=== PATIENT | male | born 1945 | race Caucasian/White ===

== ENCOUNTER → 2023-11-19 | Outpatient (CLI) | payer MEDICARE ==
[2023-11-19 11:13] LABS: HCT 40.7 % (39.0-53.0); HGB 13.3 gm/dL (13.0-17.5); MCH 31.4 pg (25.0-35.0); MCHC 32.7 g/dL (31.0-37.0); MCV 96.1 fL (80.0-100.0); Mean Platelet Volume 9.2; Platelet Count 182 k/uL (150-450); RBC 4.24 m/uL (4.30-5.90); RDW 12.7 % (11.5-15.5); WBC 5.8 k/uL (3.8-10.6)
[2023-11-19 11:36] LABS: ALT 23 U/L (4-49); AST 24 U/L (17-59); African American GFR (CKD) 75 (>60 ml/min/1.73 sqM); Albumin 4.4 g/dL (3.5-5.0); Albumin/Globulin Ratio 1.8; Alkaline Phosphatase 63 U/L (38-126); Anion Gap 8 mmol/L; Blood Urea Nitrogen 22 mg/dL (9-20); Calcium 9.7 mg/dL (8.4-10.2); Carbon Dioxide 29 mmol/L (22-30); Chloride 102 mmol/L (98-107); Globulin 2.4 g/dL; Glucose 99 mg/dL (74-99); Non-African American GFR(CKD) 65 (>60 ml/min/1.73 sqM); Potassium 4.4 mmol/L (3.5-5.1); Sodium 139 mmol/L (137-145); Total Protein 6.8 g/dL (6.3-8.2)
[2023-11-19 11:37] LABS: INR 0.9 (<1.2); Partial Thromboplastin Time 22.1 sec (22.0-30.0); Prothrombin Time 10.4 sec (10.0-12.5)
[2023-11-19 11:44] LABS: NT-Pro-B-Type Natriuretic Pept 188 pg/mL
[2023-11-19 15:43] LABS: Chol/HDL Ratio 3.36 Ratio; LDL Cholesterol,Calculated 105.3 mg/dL (0.0-131.0)
== END | disposition home or self-care (01) ==
LOC: LABPAT 10:19
PROVIDERS: ATTEND Orthopaedic Surgery
DX: Z01.818 Encounter for other preprocedural examination (principal); Z13.6 Encounter for screening for cardiovascular disorders; D72.9 Disorder of white blood cells, unspecified; E11.9 Type 2 diabetes mellitus without complications; I50.9 Heart failure, unspecified; E78.5 Hyperlipidemia, unspecified; E03.9 Hypothyroidism, unspecified; M16.11 Unilateral primary osteoarthritis, right hip; Z22.322 Carrier or suspected carrier of Methicillin resistant Staphylococcus aureus; R00.1 Bradycardia, unspecified; R79.89 Other specified abnormal findings of blood chemistry
CPT/HCPCS: 80053; 80061; 83036; 83880; 84443; 85027; 85610; 85730; 86141; 86850; 86900; 86901; 87070; 93005

== ENCOUNTER 2023-11-30 05:35 | Inpatient (IN) | payer MEDICARE ==
[~2023-11-30 05:35] MED LIST: ROPIVACAINE/EPI/CLONIDINE/KET 50 ML SYRINGE MISCELLANE PRN
[2023-11-30] MEDS ORDERED: LIDOCAINE 1% (10MG/ML) FOR IV START INTRADERMA PRN (05:36)
[2023-11-30] MEDS ORDERED: ONDANSETRON 4 MG/2 ML VIAL IVP PRN ×3 (05:36→08:30)
[2023-11-30] MEDS ORDERED: HYDROmorphone 0.5 MG/0.5 ML SYRINGE IVP PRN ×3 (05:36→08:30)
[2023-11-30] MEDS ORDERED: DOCUSATE 100 MG CAP PO PRN (06:00)
[2023-11-30] MEDS ORDERED: oxyCODONE ER 10 MG TAB.ER.12H PO PRN (06:00)
[2023-11-30] MEDS ORDERED: DEXAMETHASONE SOD PHOSPHATE 10 MG/ML 1 ML VIAL IV PRN (06:00)
[2023-11-30] MEDS ORDERED: TRANEXAMIC 1,000 MG/100ML-NACL 1,000 MG in SALINE 1 100ML.BAG IV PRN (06:00)
[2023-11-30] MEDS ORDERED: TRANEXAMIC 1,000 MG/100ML-NACL 1,000 MG in SALINE 1 100ML.BAG IVPB PRN (06:00)
[2023-11-30] MEDS ORDERED: FAMOTIDINE 20 MG/2 ML VIAL IVP PRN (06:00)
[2023-11-30] MEDS ORDERED: KETOROLAC 15 MG/ML 1 ML VIAL IVP PRN (06:00)
[2023-11-30] MEDS: ACETAMINOPHEN TAB 500 MG TAB PO PRN (06:06)
[2023-11-30] MEDS: ONDANSETRON 4 MG/2 ML VIAL IVP ONE (06:31)
[2023-11-30] MEDS: DEXAMETHASONE SOD PHOSPHATE 4 MG/ML 1 ML VIAL IV ONE (06:31)
[2023-11-30] MEDS: LACTATED RINGERS 1,000 ML IV SCH (06:31)
[2023-11-30] MEDS: IV FLUID CONTINUATION 1,000 ML IV ONE (06:43)
[2023-11-30] MEDS: fentaNYL (PF) 50 MCG/ML 2 ML AMP IVP ONE (06:50)
[2023-11-30] MEDS: MIDAZOLAM 2 MG/2 ML VIAL IV ONE (06:50)
[2023-11-30] MEDS ORDERED: TRANEXAMIC 1,000 MG/100ML-NACL PREMIX BAG ONE (06:59)
[2023-11-30] MEDS ORDERED: PROPOFOL 10 MG/ML 20 ML VIAL IV ONE (06:59)
[2023-11-30] MEDS ORDERED: ePHEDrine 50 MG/ML 1 ML VIAL ONE (06:59)
[2023-11-30] MEDS ORDERED: ROPIVACAINE 5 MG/ML 30 ML VIAL ONE (06:59)
[2023-11-30] MEDS ORDERED: GLYCOPYRROLATE 0.2 MG/ML 2 ML VIAL ONE (06:59)
[2023-11-30] MEDS: ceFAZolin 1,000 MG in SODIUM CHLORIDE 0.9% 1,000 ML IRRIGATION ONE (07:00)
[2023-11-30] MEDS: ROPIVACAINE 5 MG/ML 30 ML VIAL MISCELLANE ONE ×2 (07:31→08:00)
--- NOTE | 2023-11-30 08:08 | P.OP ---
Date of Procedure: 11/30/23 Preoperative Diagnosis: Severe osteoarthritis left hip Postoperative Diagnosis: Severe osteoarthritis left hip Procedure(s) Performed: Left total hip arthroplasty with a direct anterior approach Implants: [employer] Polarstem standard size 3 with a collar [employer] R3, 3 hole hemispherical acetabular shell, 52 mm [employer] Reflection 6.5 mm cancellus screws, 20 mm, 25 mm [employer] R3, XLPE 20 acetabular liner [employer] Oxinium femoral head 36 mm, +0 All components were press-fit. The articulation is Oxinium on polyethylene. Anesthesia: spinal Surgeon: Richi Baxter Features Editor #1: Rosario Bright Estimated Blood Loss (ml): 200 Pathology: none sent Condition: stable Disposition: PACU Indications for Procedure: After failure of conservative treatment we discussed the surgical and non surgical treatment options at length. Patient wishes to proceed with a total hip arthroplasty with a direct anterior approach. Complications specific to this procedure were discussed at length, including but not limited to infection, leg length discrepancy, dislocation, nerve injury, and fracture. Covid-19 was also discussed at length with the patient, and they are aware of the current policies and procedures. The patient was given the option of delaying surgery, but they elect to proceed knowing these risks. Patient is aware of all these complications and informed consent was obtained Operative Findings: The operative findings are consistent with severe osteoarthritis of the left hip Description of Procedure: The patient was seen and evaluated in the preoperative area and the consent was reviewed. The operative site was marked with a skin marker. The patient verified the procedure and operative site. A GILBERTO block was placed by anesthesia in the preoperative area. The patient was then brought to the operating room and given preoperative antibiotics intravenously. 1 g of Tranexamic acid was also given intravenously. A spinal anesthetic was administered by the anesthesia department. The patient was then placed on the [place] table with the bony prominences well-padded. The hip area was then prepped with a ChloraPrep solution and draped in the usual sterile fashion. A universal timeout was then performed, which confirmed the patient's name, surgical site, ALLERGIES, and procedure being performed on the consent. Next the incision site was located at 1 cm distal and 4 cm lateral to the anterior superior iliac spine. The skin and subcutaneous tissues were sharply incised. Incision was carefully dissected down to the fascia overlying the tensor fascia eve muscle. This fascia was then incised in line with the muscle fibers. Care was taken to stay laterally in order to avoid injuring the lateral femoral cutaneous nerve. Next, using blunt finger dissection, the tensor fascia eve muscle was dissected off its investing fascia. The muscle was then carefully retracted laterally with a cobra retractor over the lateral neck of the femur. Next, the circumflex vessels were identified and cauterized using the Aquamantis device. The anterior hip capsule was then exposed. The capsule was then opened and an inverted T fashion. The retractors were then placed intracapsularly. The retractors were maintained intracapsular throughout the procedure. The proximal femur was then visualized. Fluoroscopic x-rays were then taken in order to evaluate the preoperative leg lengths. A small amount of traction was placed on the leg. The femoral neck was then osteotomized at the appropriate level above the lesser trochanter. A small wedge of bone was then removed from the remaining femoral head. Next, using a corkscrew the femoral head was removed from the acetabulum. On gross visual inspection, the femoral head had complete loss of articular cartilage and multiple periarticular osteophytes. The femoral head was then measured. Attention was then turned to the acetabulum. The acetabulum was exposed and any remaining labrum was excised. Sequential reaming of the acetabulum was performed using fluoroscopic guidance until there was a good bed of bleeding cancellus bone. When the appropriate size was reached, a trial was then placed. The position and fit of the trial was checked with fluoroscopy. The trial was then removed. Then, using fluoroscopic guidance, the final implant was impacted at 20 of anteversion and 40 of abduction, and fully seated in the acetabulum. 2 screws were then placed in the acetabulum. Again fluoroscopy was used to check position of the screws. Next, the liner was then impacted, with a 20 elevated liner located in the anterior superior quadrant. Component locking was confirmed. Attention was then directed to the femur. With the aid of the [place] table, the femur was externally rotated to approximately 130, extended, and adducted under the opposite leg. A side hook was then placed under the proximal femur, and the side hook elevator was used to elevate the proximal femur while releasing the capsule. Retractors were then placed. A capsular release was performed, as well as a release of the conjoined tendon, which afforded excellent visualization of the proximal femur. Next, a box osteotome was used to lateralize the proximal femur. A racing secretary and handicapper was then used to locate the femoral canal. Sequential broaching was then performed with appropriate size which afforded excellent fixation in the proximal femur. A trial was then placed with appropriate head and neck, and the hip was gently reduced with the aid of the [place] table. Fluoroscopy was then used to check position of the components, as well as to evaluate the leg lengths and offset. The leg lengths and offset were measured as closely as possible to ensure stability of the hip. The hip was then gently dislocated and the trials were then removed. Final implants were then impacted and the hip was again reduced. Final fluoroscopic x-rays confirmed that the components were in anatomic position. The leg lengths and offset were measured and were found to coincide with the trial measurements. The hip was also taken through range of motion, and found to be stable. The hip was then copiously irrigated with antibiotic solution with pulsatile lavage. The hip was then irrigated with Irrisept solution. The soft tissues were then injected with a ropivacaine solution. A second dose of 1 g of Tranexamic acid was also given intravenously. The fascia was then closed with 2-0 strata fix suture. The subcutaneous tissue was closed with 3-0 Vicryl. The subcuticular tissue was closed with 3-0 strata fix suture. The skin was then closed with Exofin skin glue. After the glue and dried, and Optifoam silver impregnated dressing was applied. The patient was then transferred to the recovery room in stable condition. The clinical trial assistant KOKO Jean was required due to the complexity of surgery, and the need for skilled hand frame surgical elastic knitter for positioning, draping, exposure, retraction, and closure of the wound.
[2023-11-30] MEDS ORDERED: NALOXONE 0.4 MG/ML 1 ML VIAL IV PRN (08:30)
--- NOTE | 2023-11-30 09:40 | XR ---
EXAMINATION TYPE: XR one view left hip DATE OF EXAM: 11/30/2023 8:54 AM CLINICAL INDICATION: Male, 78 years old with history of Status post hip surgery, assess surgical roxana hein; [facility] COMPARISON: None. TECHNIQUE: XR Hip Limited LT; hip was examined in the frontal projections FINDINGS: Post arthroplasty changes, hardware is intact, alignment is appropriate. No evidence of fra cture. No evidence of any acute osseous pathology or joint dislocation. IMPRESSION: Hip arthroplasty with hardware intact and in appropriate alignment. No acute fracture. [facility], , 11/30/2023 9:38 AM
[2023-11-30] MEDS: SODIUM CHLORIDE 0.9% 1,000 ML IV ONE (15:44)
[2023-11-30] MEDS: SODIUM CHLORIDE 0.9% 1,000 ML IV SCH (16:58)
--- NOTE | 2023-11-30 17:03 | P.ANPRN ---
Procedure Note - Anesthesia - Nerve Block Performed Left Hal Single Time Out Performed: Yes ([id number]) Date of Procedure: 11/30/23 Procedure Start Time: 06:50 Procedure Stop Time: 06:54 Location of Patient: PreOp Indication: Acute Post-Operative Pain, Requested by Surgeon Specifically requested for management of pain by DrAmmon: Richi Baxter Sedation Type: Sedate with meaningful contact maintained Preparation: Sterile Prep Position: Supine Catheter: None Needle Types: Pajunk Needle Gauge: 21 Ultrasound used to visualize needle placement: Yes Ultrasound used to observe medication spread: Yes Injectate: 0.5% Ropivacaine (see comment for volume) (30cc) Blood Aspirated: No Pain Paresthesia on Injection Noted: No Resistance on Injection: Normal Image Stored and Saved: Yes Events: Uneventful and Well Tolerated
[2023-11-30] MEDS: HYDROmorphone 0.5 MG/0.5 ML SYRINGE IVP PRN (18:39)
--- NOTE | 2023-11-30 21:50 | P.CONS ---
History of Present Illness - Reason for Consult Consult date: 11/30/23 Medical management Requesting physician: Richi Baxter - Chief Complaint Left total hip arthroplasty - History of Present Illness HISTORY OF PRESENT ILLNESS: 78-year-old with active medical history of advanced dementia, hypertension, hyperlipidemia, atherosclerotic heart disease post angioplasty and stent placement from few years ago, history of chronic arthritis, chronic lower back pain, severe abnormal balance and gait who also had BPH and severe GERD was scheduled for elective left total hip arthroplasty on November 30, 2023 was seen and evaluated in the office also was seen and evaluated by cardiology Dr. Fair and was cleared for surgery by all. 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 and was the last part of his life living in [place] when noted by friend that he is having further decline in memory and cognitive contact with family and hide patient transfer to [place] where he was originally from. Patient again started seen his new send as you and his sister with her family and apparently had an arrangement to see cardiology, neurology with Dr. Xavier to work patient had Mini-Mental status along with MRI last 2 weeks result were not released so far and was told that he had most likely Alzheimer disease furthermore might require medication and management there is an appointment with Dr. Xavier to sometime in the next few weeks. Family described he has no help at home patient never been does not have any children and 1 time to go home after his hip surgery he does not have much help he is going require to go to subacute rehab specially with his cognitive and decline in memory. Patient is doing well hemodynamically medication reconciliation was done he is not having any chest pain or angina he is not hypoxic blood pressure is well- controlled. REVIEW OF SYSTEMS: CONSTITUTIONAL: Well-developed no acute respiratory distress. EYES: No icterus sclerae, no conjunctivitis. EARS, NOSE, MOUTH, THROAT, and FACE: No sore throat, lymphadenopathy, carotid bruits or deformity. RESPIRATORY: No SOB cough or wheezes. CARDIOVASCULAR: No CP, Palpitation, PND, Orthopnea, or angina. GASTROINTESTINAL: No Abd pain, Nausea or vomiting, no Diarrhea or constipation, No GI Bleed, no distention or masses. GENITOURINARY: Negative for Hematuria or UTI, no kidney stones. INTEGUMENT/BREAST: Negative for any muscular injury with mild osteoarthritis.. HEMATOLOGIC/LYMPHATIC: Negative for bleed or purpura. MUSCULOSKELTAL: Slight discomfort in the left hip area incision looks fine. NEURLOGICAL: Significant decline in memory and dementia but able to move all his extremities. BEHAVIORAL/PSYCH: Negative. ENDOCRINE: Negative. PHYSICAL EXAMINATION: General Appearance: Alert, cooperative, no distress, appears stated age. Slight confusion. Neck HEENT: Supple, no lymphadenopathy, no thyroid enlargement, no carotid bruits. Lungs: Clear to auscultation without crackles or wheezes no rhonchi, no deformity. Chest Wall: Chest wall normal expansion with deep inspiration no tenderness and no deformity was found on exam, no costochondral pain or discomfort. Heart: Regular rate and rhythm, S1, S2 normal, no murmur, rub or gallop. Back: Symmetric, no curvature, ROM normal, no CVA tenderness. Abdomen: Soft, non-tender, bowel sounds active all four quadrants, no masses, no organomegaly. Extremities: Left hip incision is an anterior site of area with no induration or redness. Pulses: 2+ and symmetric. Skin: Skin color, texture, tugor normal, no rashes or lesions. Neurologic: Alert oriented slight confusion cranial nerves II through XII intact, no motor deficit, no abnormal balance or gait. ASSESSMENT AND PLAN: _Post anterior left total hip arthroplasty: Stable postsurgery resume home medication, watch patient symptoms carefully Patient to be watched hemodynamically as well vitals following surgery still showing pulse rate in the 50s with normal blood pressure pulse ox is in the 90s temperature is normal. No decline hemodynamically and pain is well-controlled. _Atherosclerotic heart disease: Post angioplasty and stent placement years ago, still seen cardiology continue medical management with a combination of lisinopril, atorvastatin and aspirin. _Advanced decline in memory most likely Alzheimer disease he is not on any medication had seen neurology and probably initiate smaller dose of Aricept and prepare for titrating dose higher if needed. _Hypertension: Remain on Zestril 5 mg a day will titrate dose up to 25 to keep his blood pressure below 130 and below 88 for diastolic. _Hyperlipidemia: Remain on atorvastatin 40 mg with target for LDL below 70. _BPH: Watch for any urinary retention no obstruction so far had more polyuria and nocturia and mild incontinence. _Pain management: Continue hydrocodone on as-needed basis. _GI prophylaxis: Patient be on Pepcid 20 mg daily. _DVT prophylaxis: Patient will follow instruction with Ortho recommendation for aspirin 325 mg twice a day for total of 2 weeks. CODE STATUS: Full code. Dr. Baxter thank very much for the consult if I can be any further help to please let me know. Past Medical History Past Medical History: Hearing Disorder / Deafness, Hyperlipidemia, Hypertension, Memory Impairment Additional Past Medical History / Comment(s): being tested for cognitive decline, short term memory loss, [facility] [facility]- no hearing aids; left lower leg wound- scabbed and healed per sister, aware to notify Dr. Baxter of any changes. History of Any Multi-Drug Resistant Organisms: None Reported Past Surgical History: Heart Catheterization With Stent Past Anesthesia/Blood Transfusion Reactions: No Reported Reaction Date of Last Stent Placement:: 2021 Past Psychological History: No Psychological Hx Reported Smoking Status: Never smoker Past Alcohol Use History: Occasional Additional Past Alcohol Use History / Comment(s): occasional glass of wine- instructed none 24 hrs prior to surg. Past Drug Use History: None Reported - Past Family History Father Family Medical History: Coronary Artery Disease (CAD) Additional Family Medical History / Comment(s): CABG Mother Family Medical History: Coronary Artery Disease (CAD) Additional Family Medical History / Comment(s): CABG Medications and Allergies Home Medications Medication Instructions Recorded Confirmed Type Aspirin [Adult Low Dose Aspirin EC] 81 mg PO DAILY 11/23/23 11/30/23 History Atorvastatin [Lipitor] 40 mg PO DAILY 11/23/23 11/30/23 History lisinopriL [Zestril] 5 mg PO DAILY 11/23/23 11/30/23 History Aspirin 325 mg PO BID #60 tab 11/30/23 Rx HYDROcodone/APAP 7.5-325MG [[place] 1 - 2 tab PO Q6H PRN #32 tab 11/30/23 Rx 7.5-325] Sennosides [Senokot] 2 tab PO DAILY PRN #60 tablet 11/30/23 Rx Allergies Allergy/AdvReac Type Severity Reaction Status Date / Time Iodinated Contrast Media Allergy Swelling Verified 11/30/23 06:04 Physical Exam Vitals: Vital Signs Temp Pulse Pulse Pulse Resp BP BP 11/30/23 15:54 97.6 F 75 18 137/67 11/30/23 15:01 57 L 16 113/56 11/30/23 14:28 57 L 16 122/58 11/30/23 13:58 57 L 16 138/65 11/30/23 13:28 57 L 16 120/57 11/30/23 13:01 57 L 16 109/58 11/30/23 12:43 57 L 16 116/56 11/30/23 12:28 57 L 16 117/60 11/30/23 12:13 57 L 16 109/58 11/30/23 11:56 56 L 16 104/56 11/30/23 11:28 53 L 16 105/54 11/30/23 11:13 54 L 16 108/57 11/30/23 10:58 49 L 16 108/55 11/30/23 10:43 49 L 16 107/58 11/30/23 10:28 51 L 16 104/58 11/30/23 10:13 50 L 16 113/56 11/30/23 09:58 50 L 16 106/67 11/30/23 09:43 55 L 16 97/52 11/30/23 09:28 55 L 16 97/88 11/30/23 09:13 50 L 16 100/55 11/30/23 08:58 50 L 16 94/52 11/30/23 08:43 50 L 16 91/55 11/30/23 08:27 98 F 57 L 16 95/54 11/30/23 06:07 97.9 F 59 L 18 137/62 Pulse Ox 11/30/23 15:54 96 11/30/23 15:01 97 11/30/23 14:28 97 11/30/23 13:58 97 11/30/23 13:28 97 11/30/23 13:01 97 11/30/23 12:43 97 11/30/23 12:28 97 11/30/23 12:13 97 11/30/23 11:56 97 11/30/23 11:28 96 11/30/23 11:13 97 11/30/23 10:58 97 11/30/23 10:43 97 11/30/23 10:28 97 11/30/23 10:13 97 11/30/23 09:58 97 11/30/23 09:43 98 11/30/23 09:28 98 11/30/23 09:13 98 11/30/23 08:58 98 11/30/23 08:43 98 11/30/23 08:27 98 11/30/23 06:07 97 Intake and Output 11/30/23 11/30/23 11/30/23 06:59 14:59 22:59 Intake Total 200 551 Output Total 900 Balance 200 -349 Intake: IV 200 551 Output: Urine 700 Estimated Blood Loss 200 Other: Voiding Method Urinal # Voids 1 Weight 77.9 kg 77.9 kg
[2023-11-30] MEDS: LORazepam 2 MG/ML INJ IV PRN (22:18)
[2023-11-30] MEDS ORDERED: LORazepam 2 MG/ML INJ IV PRN ×3 (22:23)
[2023-11-30] MEDS: SENNOSIDES-DOCUSATE SODIUM 1 EACH TAB PO SCH (22:36)
[2023-11-30] MEDS: ASPIRIN 325 MG TAB PO SCH (22:36)
[2023-12-01] MEDS: lisinopriL 5 MG TAB PO SCH (08:30)
[2023-12-01] MEDS: FAMOTIDINE 20 MG TAB PO SCH (08:30)
[2023-12-01] MEDS: ATORVASTATIN 40 MG TAB PO SCH (08:30)
[2023-12-01] MEDS: HYDROcodone/APAP 7.5-325MG 1 EACH TAB PO PRN ×2 (08:31→15:52)
[2023-12-01 08:42] LABS: Basophils # (A) 0.02 X 10*3/uL (0.00-0.10); Basophils % (A) 0.2 %; Eosinophils # (A) 0 X 10*3/uL (0.04-0.35); Eosinophils % (A) 0 %; HCT 34.2 % (39.6-50.0); HGB 11.3 g/dL (13.0-17.0); Lymphocytes # (A) 1.25 X 10*3/uL (0.90-5.00); Lymphocytes % (A) 11.7 %; MCH 30.5 pg (27.0-32.0); MCV 92.4 FL (80.0-97.0); Mean Platelet Volume 12.1 FL (9.5-12.2); Monocytes # (A) 1.26 X 10*3/uL (0.20-1.00); Monocytes % (A) 11.8 %; NRBC Per 100 WBC 0 X 10*3/uL (0.00-0.01); Neutrophils # (A) 8.12 X 10*3/uL (1.80-7.70); Neutrophils % (A) 75.7 %; Platelet Count 191 X 10*3/uL (140-440); RDW 13.4 % (11.5-14.5); WBC 10.71 X 10*3/uL (4.50-10.00)
--- NOTE | 2023-12-01 13:43 | P.PN ---
Subjective Progress Note Date: 12/01/23 This is a 78-year-old male who is status post left total hip arthroplasty. This is postoperative day #1 and patient is seen and evaluated at bedside today. Patient is somewhat of a poor historian, but daughter is present at bedside today. Patient states that he has soreness in the left hip, but overall is doing well. Objective - Vital Signs Vital signs: Vital Signs Temp 97.8 F 12/01/23 08:11 Pulse 77 12/01/23 08:11 Resp 17 12/01/23 08:11 BP 124/53 12/01/23 08:11 Pulse Ox 97 12/01/23 08:11 FiO2 Intake & Output 11/30/23 12/01/23 12/01/23 18:59 06:59 18:59 Intake Total 551 Output Total 950 100 Balance -399 -100 Weight 77.9 kg Intake: IV 551 Output: Urine 750 100 Estimated Blood Loss 200 Other: Voiding Method Urinal Toilet # Voids 1 1 - Exam Vital signs are stable. Patient is in no acute distress and is alert and oriented 3. Calf is soft and nontender to palpation. Dressing is clean, dry, and intact. Patient has full foot and ankle motion without pain or difficulty. Sensation intact. Neurovascular status and circulatory status are intact. - Labs CBC & Chem 7: 12/01/23 02:32 Labs: Abnormal Lab Results - Last 24 Hours (Table) 12/01/23 Range/Units 02:32 WBC 10.71 H (4.50-10.00) X 10*3/uL RBC 3.70 L (4.40-5.60) X 10*6/uL Hgb 11.3 L (13.0-17.0) g/dL Hct 34.2 L (39.6-50.0) % Immature Gran # 0.06 H (0.00-0.04) X 10*3/uL Neutrophils # 8.12 H (1.80-7.70) X 10*3/uL Monocytes # 1.26 H (0.20-1.00) X 10*3/uL Eosinophils # 0 L (0.04-0.35) X 10*3/uL Assessment and Plan (1) S/P total hip arthroplasty Current Visit: Yes Status: Acute Code(s): Z96.649 - PRESENCE OF UNSPECIFIED ARTIFICIAL HIP JOINT SNOMED Code(s): 132630914373 (2) Osteoarthritis of left hip Current Visit: Yes Status: Acute Code(s): M16.12 - UNILATERAL PRIMARY OSTEOARTHRITIS, LEFT HIP SNOMED Code(s): 654757510837377 Plan: Continue routine postop care and pain control. Continue anticoagulation. Weightbearing as tolerated with a walker. Leave dressing in place for 7 days. Appreciate input from internal medicine. Anticipate discharge to [facility] in the next 24-48 hours.
--- NOTE | 2023-12-01 18:22 | FL ---
EXAMINATION TYPE: FL guidance operating room, XR Hip Limited LT DATE OF EXAM: 11/30/2023 8:21 AM COMPARISON: Pre Operative Images if available both CT/MRI or plain film CLINICAL INDICATION: Male, 78 years old with history of Left Hip-Ant; TECHNIQUE: FL guidance operating room, XR Hip Limited LT, multiple fluoroscopic images provided for p rocedure. Total fluoroscopy time: 19 seconds Total submitted images to PACS: 3 DAP: 1.0128 mGym2 Gycm2 uGym2 cGycm2 or equivalent. FINDINGS: Fluoroscopic images during internal fixation/arthroplasty demonstrate fixation hardware in appropriat e position. Hardware appears intact. No immediate complication identified. IMPRESSION: 1. No evidence for intraoperative complication. 2. Please see the operative/procedural note for further details. [facility], , 12/01/2023 6:19 PM
--- NOTE | 2023-12-02 05:53 | P.PN ---
Subjective Progress Note Date: 12/01/23 HISTORY OF PRESENT ILLNESS: 78-year-old with active medical history of advanced dementia, hypertension, hyperlipidemia, atherosclerotic heart disease post angioplasty and stent pl acement from few years ago, history of chronic arthritis, chronic lower back pain, severe abnormal balance and gait who also had BPH and severe GERD was scheduled for elective left total hip arthroplasty on November 30, 2023 was seen and evaluated in the office also was seen and evaluated by cardiology Dr. Fair and was cleared for surgery by all. 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 Patient again started seen his new send as you and his sister with her family and apparently had an arrangement to see cardiology, neurology with Dr. Xavier to work patient had Mini-Mental status along with MRI last 2 weeks result were not released so far and was told that he had most likely Alzheimer disease furthermore might require medication and management there is an appointment with Dr. Xavier to sometime in the next few weeks. Family described he has no help at home patient never been does not have any children and 1 time to go home after his hip surgery he does not have much help he is going require to go to subacute rehab specially with his cognitive an d decline in memory. Patient is doing well hemodynamically medication reconciliation was done he is not having any chest pain or angina he is not hypoxic blood pressure is well- controlled. 12/01/2023: Patient doing good overnight, he was quite confused initially was able to get out of bed today sitting in a chair eating his breakfast, blood pressure remained well-controlled, pain level still good at this point. His hemoglobin dropped down to 11.3 and he seems to be able to tolerate his pain very well. Will initiate physical therapy the patient again does not have a support system or the physical help at home will require probably some help going to one of the [facility] to recover from his hip surgery. Despite his memory loss patient is not combative does not have any behavioral issue earlier in the night had quite confusion and the pulling his IV we did smaller dose of lorazepam which calmed him down did not require any further medication or sedation. REVIEW OF SYSTEMS: CONSTITUTIONAL: Well-developed no acute respiratory distress. EYES: No icterus sclerae, no conjunctivitis. EARS, NOSE, MOUTH, THROAT, and FACE: No sore throat, lymphadenopathy, carotid bruits or deformity. RESPIRATORY: No SOB cough or wheezes. CARDIOVASCULAR: No CP, Palpitation, PND, Orthopnea, or angina. GASTROINTESTINAL: No Abd pain, Nausea or vomiting, no Diarrhea or constipation, No GI Bleed, no distention or masses. GENITOURINARY: Negative for Hematuria or UTI, no kidney stones. INTEGUMENT/BREAST: Negative for any muscular injury with mild osteoarthritis.. HEMATOLOGIC/LYMPHATIC: Negative for bleed or purpura. MUSCULOSKELTAL: Slight discomfort in the left hip area incision looks fine. NEURLOGICAL: Significant decline in memory and dementia but able to move all his extremities. BEHAVIORAL/PSYCH: Negative. ENDOCRINE: Negative. PHYSICAL EXAMINATION: General Appearance: Alert, cooperative, no distress, appears stated age. Slight confusion. Neck HEENT: Supple, no lymphadenopathy, no thyroid enlargement, no carotid bruits. Lungs: Clear to auscultation without crackles or wheezes no rhonchi, no deformity. Chest Wall: Chest wall normal expansion with deep inspiration no tenderness and no deformity was found on exam, no costochondral pain or discomfort. Heart: Regular rate and rhythm, S1, S2 normal, no murmur, rub or gallop. Back: Symmetric, no curvature, ROM normal, no CVA tenderness. Abdomen: Soft, non-tender, bowel sounds active all four quadrants, no masses, no organomegaly. Extremities: Left hip incision is an anterior site of area with no induration or redness. Pulses: 2+ and symmetric. Skin: Skin color, texture, tugor normal, no rashes or lesions. Neurologic: Alert oriented slight confusion cranial nerves II through XII intact, no motor deficit, no abnormal balance or gait. ASSESSMENT AND PLAN: _Post anterior left total hip arthroplasty: Stable postsurgery resume home medication, watch patient symptoms carefully Patient to be watched hemodynamically patient lives alone and will require some help before able to be discharged most likely is getting go to [facility] short-term. _Atherosclerotic heart disease: Post angioplasty and stent placement years ago, still seen cardiology continue medical management with a combination of l isinopril, atorvastatin and aspirin. _Advanced decline in memory most likely Alzheimer disease he is not on any medication had seen neurology and probably initiate smaller dose of Aricept 5 mg a day initiated dose at this point and when seen neurology afterward can change medication if needed. _Hypertension: Remain on Zestril 5 mg a day which seem to control the blood pressure and keeping the systolic blood pressure below 140 at this point. _Hyperlipidemia: Remain on atorvastatin 40 mg with target for LDL below 70. _BPH: Watch for any urinary retention no obstruction so far had more polyuria and nocturia and mild incontinence. _Pain management: Continue hydrocodone on as-needed basis. Discharge planning: Patient will be started and titrate physical therapy will talk to the social service about helping patient to probably get to SNF for 1 to 2 weeks. Objective - Vital Signs Vital signs: Vital Signs Temp 98.3 F 12/01/23 01:17 Pulse 83 12/01/23 01:17 Resp 12 12/01/23 03:45 BP 133/63 12/01/23 01:17 Pulse Ox 94 L 12/01/23 01:17 FiO2 Intake & Output 11/30/23 11/30/23 12/01/23 06:59 18:59 06:59 Intake Total 200 551 Output Total 950 100 Balance 200 -399 -100 Weight 77.9 kg 77.9 kg Intake: IV 200 551 Output: Urine 750 100 Estimated Blood Loss 200 Other: Voiding Method Urinal Toilet # Voids 1 1 - Labs CBC & Chem 7: 12/01/23 02:32
--- NOTE | 2023-12-02 10:53 | P.PN ---
Subjective Progress Note Date: 12/02/23 This is a 78-year-old male who is status post left total hip arthroplasty. This is postoperative day #2 and patient is seen and evaluated at bedside today. Patient states that he is doing well and he denies any new complaints today. Objective - Vital Signs Vital signs: Vital Signs Temp 98.5 F 12/02/23 01:23 Pulse 71 12/02/23 01:23 Resp 15 12/02/23 01:23 BP 126/67 12/02/23 01:23 Pulse Ox 96 12/02/23 01:23 FiO2 Intake & Output 12/01/23 12/02/23 12/02/23 18:59 06:59 18:59 Other: Voiding Method Toilet Toilet # Voids 1 1 - Exam Vital signs are stable. Patient is in no acute distress and is alert and oriented 3. Calf is soft and nontender to palpation. Dressing is clean, dry, and intact. Patient has full foot and ankle motion without pain or difficulty. Sensation intact. Neurovascular status and circulatory status are intact. - Labs CBC & Chem 7: 12/01/23 02:32 Assessment and Plan (1) S/P total hip arthroplasty Current Visit: Yes Status: Acute Code(s): Z96.649 - PRESENCE OF UNSPECIFIED ARTIFICIAL HIP JOINT SNOMED Code(s): 752569034104 (2) Osteoarthritis of left hip Current Visit: Yes Status: Acute Code(s): M16.12 - UNILATERAL PRIMARY OSTEOARTHRITIS, LEFT HIP SNOMED Code(s): 228201705596764 Plan: Continue routine postop care and pain control. Continue anticoagulation. Weightbearing as tolerated with a walker. Leave dressing in place for 7 days. Appreciate input from internal medicine. Anticipate discharge to [facility] in the next 24-48 hours.
[2023-12-02] MEDS: MAGNESIUM HYDROXIDE 2,400 MG/30 ML CUP PO PRN (13:06)
--- NOTE | 2023-12-02 23:34 | P.PN ---
Subjective Progress Note Date: 12/02/23 HISTORY OF PRESENT ILLNESS: 78-year-old with active medical history of advanced dementia, hypertension, hyperlipidemia, atherosclerotic heart disease post angioplasty and stent pl acement from few years ago, history of chronic arthritis, chronic lower back pain, severe abnormal balance and gait who also had BPH and severe GERD was scheduled for elective left total hip arthroplasty on November 30, 2023 was seen and evaluated in the office also was seen and evaluated by cardiology Dr. Fair and was cleared for surgery by all. 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 Patient again started seen his new send as you and his sister with her family and apparently had an arrangement to see cardiology, neurology with Dr. Xavier to work patient had Mini-Mental status along with MRI last 2 weeks result were not released so far and was told that he had most likely Alzheimer disease furthermore might require medication and management there is an appointment with Dr. Xavier to sometime in the next few weeks. Family described he has no help at home patient never been does not have any children and 1 time to go home after his hip surgery he does not have much help he is going require to go to subacute rehab specially with his cognitive an d decline in memory. Patient is doing well hemodynamically medication reconciliation was done he is not having any chest pain or angina he is not hypoxic blood pressure is well- controlled. 12/01/2023: Patient doing good overnight, he was quite confused initially was able to get out of bed today sitting in a chair eating his breakfast, blood pressure remained well-controlled, pain level still good at this point. His hemoglobin dropped down to 11.3 and he seems to be able to tolerate his pain very well. Will initiate physical therapy the patient again does not have a support system or the physical help at home will require probably some help going to one of the [facility] to recover from his hip surgery. Despite his memory loss patient is not combative does not have any behavioral issue earlier in the night had quite confusion and the pulling his IV we did smaller dose of lorazepam which calmed him down did not require any further medication or sedation. 12/02/2023: Patient incision has been healing well is ambulating with slight help at this point. Is day 2 post OR and remained very stable hemodynamically, pain is well-controlled, continue weightbearing as tolerated with a walker with the help of physical therapy and possibly going for SNF in the next 24 hours. With worsening dementia patient had a sitter for the night he is more calm and stable probably with the chair in bed monitor should be able to allow him to be by himself without the sitter. REVIEW OF SYSTEMS: CONSTITUTIONAL: Well-developed no acute respiratory distress. EYES: No icterus sclerae, no conjunctivitis. EARS, NOSE, MOUTH, THROAT, and FACE: No sore throat, lymphadenopathy, carotid bruits or deformity. RESPIRATORY: No SOB cough or wheezes. CARDIOVASCULAR: No CP, Palpitation, PND, Orthopnea, or angina. GASTROINTESTINAL: No Abd pain, Nausea or vomiting, no Diarrhea or constipation, No GI Bleed, no distention or masses. GENITOURINARY: Negative for Hematuria or UTI, no kidney stones. INTEGUMENT/BREAST: Negative for any muscular injury with mild osteoarthritis.. HEMATOLOGIC/LYMPHATIC: Negative for bleed or purpura. MUSCULOSKELTAL: Slight discomfort in the left hip area incision looks fine. NEURLOGICAL: Significant decline in memory and dementia but able to move all his extremities. BEHAVIORAL/PSYCH: Negative. ENDOCRINE: Negative. PHYSICAL EXAMINATION: General Appearance: Alert, cooperative, no distress, appears stated age. Slight confusion. Neck HEENT: Supple, no lymphadenopathy, no thyroid enlargement, no carotid bruits. Lungs: Clear to auscultation without crackles or wheezes no rhonchi, no def ormity. Chest Wall: Chest wall normal expansion with deep inspiration no tenderness and no deformity was found on exam, no costochondral pain or discomfort. Heart: Regular rate and rhythm, S1, S2 normal, no murmur, rub or gallop. Back: Symmetric, no curvature, ROM normal, no CVA tenderness. Abdomen: Soft, non-tender, bowel sounds active all four quadrants, no masses, no organomegaly. Extremities: Left hip incision is an anterior site of area with no induration or redness. Pulses: 2+ and symmetric. Skin: Skin color, texture, tugor normal, no rashes or lesions. Neurologic: Alert oriented slight confusion cranial nerves II through XII intact, no motor deficit, no abnormal balance or gait. ASSESSMENT AND PLAN: _Post anterior left total hip arthroplasty: Day 2 postsurgery, titrate physical therapy with increased weightbearing with help. Anticipate most likely short course of rehab. _Atherosclerotic heart disease: Post angioplasty and stent placement years ago, still seen cardiology continue medical management with a combination of lisinopril, atorvastatin and aspirin. _Advanced decline in memory most likely Alzheimer disease he is not on any medication had seen neurology and probably initiate smaller dose of Aricept 5 mg a day initiated dose at this point and when seen neurology afterward can change medication if needed. _Hypertension: Remain on Zestril 5 mg a day blood pressure seems to fluctuate little bit but still under control. _Hyperlipidemia: Remain on atorvastatin 40 mg with target for LDL below 70. _BPH: Watch for any urinary retention no obstruction so far had more polyuria and nocturia and mild incontinence. _Pain management: Continue hydrocodone on as-needed basis. _Anticoagulation: Still on aspirin 325 mg twice a day. Discharge planning: Titrate physical therapy continue current management with the social professionals try to find hand place probably in one of the short-term rehab. Objective - Vital Signs Vital signs: Vital Signs Temp 98.5 F 12/02/23 01:23 Pulse 71 12/02/23 01:23 Resp 15 12/02/23 01:23 BP 126/67 12/02/23 01:23 Pulse Ox 96 12/02/23 01:23 FiO2 Intake & Output 12/01/23 12/01/23 12/02/23 06:59 18:59 06:59 Output Total 100 Balance -100 Output: Urine 100 Other: Voiding Method Toilet Toilet Toilet # Voids 1 1 1 - Labs CBC & Chem 7: 12/01/23 02:32 Labs: Abnormal Lab Results - Last 24 Hours (Table) 12/01/23 Range/Units 02:32 WBC 10.71 H (4.50-10.00) X 10*3/uL RBC 3.70 L (4.40-5.60) X 10*6/uL Hgb 11.3 L (13.0-17.0) g/dL Hct 34.2 L (39.6-50.0) % Immature Gran # 0.06 H (0.00-0.04) X 10*3/uL Neutrophils # 8.12 H (1.80-7.70) X 10*3/uL Monocytes # 1.26 H (0.20-1.00) X 10*3/uL Eosinophils # 0 L (0.04-0.35) X 10*3/uL
[2023-12-03] MEDS: DONEPEZIL 5 MG TAB PO SCH (02:10)
--- NOTE | 2023-12-03 07:38 | P.DS ---
Providers Date of admission: 11/30/23 08:30 Expected date of discharge: 12/03/23 Attending physician: Richi Baxter Consults: 11/30/23 08:30 Consult Physician Routine Consulting Provider: Russell Montiel Reason/Comments: medical management Do you want consulting provider notified?: Yes Primary care physician: Russell Montiel - Discharge Diagnosis(es) (1) S/P total hip arthroplasty Current Visit: Yes Status: Acute (2) Osteoarthritis of left hip Current Visit: Yes Status: Acute Hospital Course: This is a 78-year-old male with known history of degenerative arthritis of the left hip. The patient presented for evaluation as an outpatient. After discussion and consideration patient elects to proceed with total hip arthroplasty. The patient is seen preoperatively by Dr. Baxter and medically cleared for surgery by their primary care physician. Patient is admitted to [facility] on 11/30/2023 for total hip arthroplasty. The procedure is performed without complication or sequelae. The patient is doing well postoperatively. Labs and vital signs are stable on day of discharge. On day of discharge patient's hip incision is healing well. There is minimal erythema. There is no drainage noted at this time. There is minimal soft tissue swelling to the hip and thigh. Patient has full foot and ankle motion without difficulty or pain. Calf is soft and nontender to palpation. Neurovascular status to the left lower extremity is intact. Patient is discharged to rehab in good condition. Please see [facility] rec for accurate list of home medications. Plan - Discharge Summary Discharge Rx Participant: Yes New Discharge Prescriptions: New Aspirin 325 mg PO BID #60 tab HYDROcodone/APAP 7.5-325MG [[place] 7.5-325] 1 - 2 tab PO Q6H PRN #32 tab PRN Reason: Pain Sennosides [Senokot] 2 tab PO DAILY PRN #60 tablet PRN Reason: Constipation No Action Atorvastatin [Lipitor] 40 mg PO DAILY lisinopriL [Zestril] 5 mg PO DAILY Aspirin [Adult Low Dose Aspirin EC] 81 mg PO DAILY Discharge Medication List Aspirin [Adult Low Dose Aspirin EC] 81 mg PO DAILY 11/23/23 [History] Atorvastatin [Lipitor] 40 mg PO DAILY 11/23/23 [History] lisinopriL [Zestril] 5 mg PO DAILY 11/23/23 [History] Aspirin 325 mg PO BID #60 tab 11/30/23 [Rx] HYDROcodone/APAP 7.5-325MG [[place] 7.5-325] 1 - 2 tab PO Q6H PRN #32 tab 11/30/23 [Rx] Sennosides [Senokot] 2 tab PO DAILY PRN #60 tablet 11/30/23 [Rx] Follow up Appointment(s)/Referral(s): Russell Montiel MD [Primary Care Provider] - 1 Week [facility], [NON-STAFF] - As Needed Richi Baxter DO [Doctor of Osteopathic Medicine] - 12/10/23 1:00 pm (with [facility]) Activity/Diet/Wound Care/Special Instructions: Weightbearing as tolerated with walker. Leave dressing intact. Dressing may be removed by home care nurse or by patient in 7 days. Then change dressing twice daily until follow up. May shower with initial dressing intact and after removal. If dressing become saturated, please remove. Please take aspirin 325mg twice daily for 30 days to prevent blood clots. Recommend use of compression stockings daily until follow up to help prevent swelling and blood clots. May remove at night before sleeping. Please follow[facility]up with [facility] 2 weeks and call with any questions or concerns, . Discharge Disposition: TRANSFER TO SNF/ECF
[2023-12-03 07:59] VITALS: BP 127/66; PULSE 70; RESP 18; TEMP 98
[2023-12-03 08:29] LABS: Basophils # (A) 0.02 X 10*3/uL (0.00-0.10); Basophils % (A) 0.3 %; Eosinophils # (A) 0.17 X 10*3/uL (0.04-0.35); Eosinophils % (A) 2.3 %; HCT 32.2 % (39.6-50.0); HGB 10.6 g/dL (13.0-17.0); Lymphocytes # (A) 1.29 X 10*3/uL (0.90-5.00); Lymphocytes % (A) 17.5 %; MCHC 32.9 g/dL (32.0-37.0); MCV 94.2 FL (80.0-97.0); Mean Platelet Volume 12.3 FL (9.5-12.2); Monocytes # (A) 0.99 X 10*3/uL (0.20-1.00); Monocytes % (A) 13.4 %; NRBC Per 100 WBC 0 X 10*3/uL (0.00-0.01); Neutrophils # (A) 4.85 X 10*3/uL (1.80-7.70); Neutrophils % (A) 65.8 %; Platelet Count 176 X 10*3/uL (140-440); RBC 3.42 X 10*6/uL (4.40-5.60); RDW 13.2 % (11.5-14.5); WBC 7.37 X 10*3/uL (4.50-10.00)
--- NOTE | 2023-12-09 23:54 | P.PN ---
Subjective Progress Note Date: 12/03/23 HISTORY OF PRESENT ILLNESS: 78-year-old with active medical history of advanced dementia, hypertension, hyperlipidemia, atherosclerotic heart disease post angioplasty and stent pl acement from few years ago, history of chronic arthritis, chronic lower back pain, severe abnormal balance and gait who also had BPH and severe GERD was scheduled for elective left total hip arthroplasty on November 30, 2023 was seen and evaluated in the office also was seen and evaluated by cardiology Dr. Fair and was cleared for surgery by all. 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 Patient again started seen his new send as you and his sister with her family and apparently had an arrangement to see cardiology, neurology with Dr. Xavier to work patient had Mini-Mental status along with MRI last 2 weeks result were not released so far and was told that he had most likely Alzheimer disease furthermore might require medication and management there is an appointment with Dr. Xavier to sometime in the next few weeks. Family described he has no help at home patient never been does not have any children and 1 time to go home after his hip surgery he does not have much help he is going require to go to subacute rehab specially with his cognitive an d decline in memory. Patient is doing well hemodynamically medication reconciliation was done he is not having any chest pain or angina he is not hypoxic blood pressure is well- controlled. 12/01/2023: Patient doing good overnight, he was quite confused initially was able to get out of bed today sitting in a chair eating his breakfast, blood pressure remained well-controlled, pain level still good at this point. His hemoglobin dropped down to 11.3 and he seems to be able to tolerate his pain very well. Will initiate physical therapy the patient again does not have a support system or the physical help at home will require probably some help going to one of the intermediate rehab to recover from his hip surgery. Despite his memory loss patient is not combative does not have any behavioral issue earlier in the night had quite confusion and the pulling his IV we did smaller dose of lorazepam which calmed him down did not require any further medication or sedation. 12/02/2023: Patient incision has been healing well is ambulating with slight help at this point. Is day 2 post OR and remained very stable hemodynamically, pain is well-controlled, continue weightbearing as tolerated with a walker with the help of physical therapy and possibly going for SNF in the next 24 hours. With worsening dementia patient had a sitter for the night he is more calm and stable probably with the chair in bed monitor should be able to allow him to be by himself without the sitter. 12/03/2023: Patient is doing very well blood pressure is under control continue Zestril 5 mg a day will titrate dose up to 10 if needed, pain is much better controlled on oral medication. Had no complication with slight edema and swelling with able to ambulate with minimal help and has done very well. Patient will be transferred to subacute rehab today. REVIEW OF SYSTEMS: CONSTITUTIONAL: Well-developed no acute respiratory distress. EYES: No icterus sclerae, no conjunctivitis. EARS, NOSE, MOUTH, THROAT, and FACE: No sore throat, lymphadenopathy, carotid bruits or deformity. RESPIRATORY: No SOB cough or wheezes. CARDIOVASCULAR: No CP, Palpitation, PND, Orthopnea, or angina. GASTROINTESTINAL: No Abd pain, Nausea or vomiting, no Diarrhea or constipation, No GI Bleed, no distention or masses. GENITOURINARY: Negative for Hematuria or UTI, no kidney stones. INTEGUMENT/BREAST: Negative for any muscular injury with mild osteoarthritis.. HEMATOLOGIC/LYMPHATIC: Negative for bleed or purpura. MUSCULOSKELTAL: Slight discomfort in the left hip area incision looks fine. NEURLOGICAL: Significant decline in memory and dementia but able to move all his extremities. BEHAVIORAL/PSYCH: Negative. ENDOCRINE: Negative. PHYSICAL EXAMINATION: General Appearance: Alert, cooperative, no distress, appears stated age. Slight confusion. Neck HEENT: Supple, no lymphadenopathy, no thyroid enlargement, no carotid b ruits. Lungs: Clear to auscultation without crackles or wheezes no rhonchi, no deformity. Chest Wall: Chest wall normal expansion with deep inspiration no tenderness and no deformity was found on exam, no costochondral pain or discomfort. Heart: Regular rate and rhythm, S1, S2 normal, no murmur, rub or gallop. Back: Symmetric, no curvature, ROM normal, no CVA tenderness. Abdomen: Soft, non-tender, bowel sounds active all four quadrants, no masses, no organomegaly. Extremities: Left hip incision is an anterior site of area with no induration or redness. Pulses: 2+ and symmetric. Skin: Skin color, texture, tugor normal, no rashes or lesions. Neurologic: Alert oriented slight confusion cranial nerves II through XII intact, no motor deficit, no abnormal balance or gait. ASSESSMENT AND PLAN: _Post anterior left total hip arthroplasty: Day 2 postsurgery, titrate physical therapy with increased weightbearing with help. Anticipate most likely short course of rehab. _Atherosclerotic heart disease: Post angioplasty and stent placement years ago, still seen cardiology continue medical management with a combination of lisinopril, atorvastatin and aspirin. _Advanced decline in memory most likely Alzheimer disease he is not on any medication had seen neurology and probably initiate smaller dose of Aricept 5 mg a day initiated dose at this point and when seen neurology afterward can change medication if needed. _Hypertension: Remain on Zestril 5 mg a day blood pressure seems to fluctuate little bit but still under control. _Hyperlipidemia: Remain on atorvastatin 40 mg with target for LDL below 70. _BPH: Watch for any urinary retention no obstruction so far had more polyuria and nocturia and mild incontinence. _Pain management: Continue hydrocodone on as-needed basis. _Anticoagulation: Still on aspirin 325 mg twice a day. Discharge planning: Continue physical therapy and planning to go to subacute rehab today. Objective - Vital Signs Vital signs: Vital Signs Temp 97.7 F 12/03/23 02:00 Pulse 72 12/03/23 02:00 Resp 19 12/02/23 15:48 BP 125/51 12/03/23 02:00 Pulse Ox 97 12/03/23 02:00 FiO2 Intake & Output 12/02/23 12/02/23 12/03/23 06:59 18:59 06:59 Other: Voiding Method Toilet Toilet Urinal # Voids 1 1 # Bowel Movements 1 - Labs CBC & Chem 7: 12/03/23 05:00
== END 2023-12-03 14:11 | DRG 470 ==
LOC: OR 05:35 → 4SSUR 08:23 → OR 08:30
PROVIDERS: ADMIT Orthopaedic Surgery; ATTEND Orthopaedic Surgery
PROC: 0SRB06Z Replacement of Left Hip Joint with Oxidized Zirconium on Polyethylene Synthetic Substitute, Open Approach (ICD-10-PCS; principal; 2023-11-30 07:00)
DX: M16.12 Unilateral primary osteoarthritis, left hip (principal); H91.90 Unspecified hearing loss, unspecified ear; G89.29 Other chronic pain; R26.9 Unspecified abnormalities of gait and mobility; K21.9 Gastro-esophageal reflux disease without esophagitis; M54.50 Low back pain, unspecified; G30.9 Alzheimer's disease, unspecified; I10 Essential (primary) hypertension; I25.10 Atherosclerotic heart disease of native coronary artery without angina pectoris; N40.0 Benign prostatic hyperplasia without lower urinary tract symptoms; Z79.82 Long term (current) use of aspirin; Z79.899 Other long term (current) drug therapy; Z95.5 Presence of coronary angioplasty implant and graft
CPT/HCPCS: 64447; 73501; 85025; 86850; 86900; 86901

== ENCOUNTER 2023-12-04 03:22 | Emergency (ER) | payer MEDICARE ==
[2023-12-04 03:34] VITALS: TEMP 97.4
[2023-12-04] MEDS: OLANZapine 10 MG VIAL IM STA (05:11)
[2023-12-04] MEDS: LORazepam 2 MG/ML INJ IM STA (05:11)
--- NOTE | 2023-12-04 05:40 | ED ---
General Adult HPI <BasiliavishnupedroJa Dylon - Last Filed: 12/05/23 07:47> - General Source: EMS Mode of arrival: EMS <Destiny - Last Filed: 12/09/23 12:33> - General Chief complaint: Psychiatric Symptoms Stated complaint: Mental Health Time Seen by Provider: 12/04/23 04:52 - History of Present Illness Initial comments: Patient is a 78-year-old male presenting from [facility] today for agitation. Patient was recently admitted to the hospital for right hip fracture. Has a history of severe Alzheimer's dementia. Per facility report patient is usually confused however is usually not this agitated. They typically will give oral Ativan for these behaviors however they were out of Ativan tonight. Patient did receive IM Haldol x 3 from the [facility] over the course of the last 5 hours however due to persistence of agitation they called EMS to bring him to the emergency department. History limited by patient's Alzheimer's. (Destiny Moreno) - Related Data Home Medications Medication Instructions Recorded Confirmed Atorvastatin [Lipitor] 40 mg PO HS 11/23/23 12/04/23 lisinopriL [Zestril] 5 mg PO DAILY 11/23/23 12/04/23 Aspirin EC [Ecotrin] 325 mg PO BID 12/04/23 12/04/23 HYDROcodone/APAP 7.5-325MG [Minier 1 - 2 tab PO Q6H PRN 12/04/23 12/04/23 7.5-325] Sennosides [Senokot] 17.2 mg PO DAILY PRN 12/04/23 12/04/23 Previous Rx's Medication Instructions Recorded Donepezil [Aricept] 5 mg PO HS tab 12/03/23 Famotidine [Pepcid] 20 mg PO DAILY tab 12/03/23 Magnesium Hydroxide [Milk of 2,400 mg PO DAILY PRN ml 12/03/23 Magnesia] Allergies Allergy/AdvReac Type Severity Reaction Status Date / Time Iodinated Contrast Media Allergy Swelling Verified 12/04/23 11:30 Review of Systems ROS Other: All systems not noted in ROS Statement are negative. <Ja Fung - Last Filed: 12/05/23 07:47> ROS Other: All systems not noted in ROS Statement are negative. Limitations: ROS unobtainable due to patients medical condition <Destiny Moreno - Last Filed: 12/09/23 12:33> ROS Statement: Those systems with pertinent positive or pertinent negative responses have been documented in the HPI. Past Medical History Past Medical History: Hearing Disorder / Deafness, Hyperlipidemia, Hypertension, Memory Impairment Additional Past Medical History / Comment(s): being tested for cognitive decline, short term memory loss, PALA- no hearing aids; left lower leg wound- scabbed and healed per sister, aware to notify Dr. Baxter of any changes. History of Any Multi-Drug Resistant Organisms: None Reported Past Surgical History: Heart Catheterization With Stent Past Anesthesia/Blood Transfusion Reactions: No Reported Reaction Date of Last Stent Placement:: 2021 Past Psychological History: No Psychological Hx Reported Smoking Status: Never smoker Past Alcohol Use History: Occasional Past Drug Use History: None Reported - Past Family History Father Family Medical History: Coronary Artery Disease (CAD) Additional Family Medical History / Comment(s): CABG Mother Family Medical History: Coronary Artery Disease (CAD) Additional Family Medical History / Comment(s): CABG <Destiny Moreno - Last Filed: 12/09/23 12:33> General Exam <Destiny Moreno - Last Filed: 12/09/23 12:33> - General Exam Comments Initial Comments: PE: CONSTITUTIONAL: [no apparent distress, chronically ill appearing, nontoxic SKIN: Warm, dry, no jaundice, hives or petechiae EYES: Pupils are equally round, extraocular movements intact without nystagmus, clear conjunctiva, non-icteric sclera HENT: Normocephalic, atraumatic, moist mucus membranes, oropharynx clear without exudates NECK: , Full range of motion, normal appearance PULMONARY: Clear to auscultation without wheezes, rhonchi, or rales, normal excursion, no accessory muscle use and no stridor CARDIOVASCULAR: Regular rate, rhythm, normal S1 and S2. No appreciated murmurs, rubs or gallops. Strong radial pulses with intact distal perfusion. No lower extremity edema GASTROINTESTINAL: Soft, active bowel sounds throughout, patient appears to grimace and guard with palpation of the abdomen, distended no palpable masses, no rebound. No hepatosplenomegaly MUSCULOSKELETAL: Extremities have no gross deformity, no edema, redness, or swelling. No calf swelling NEUROLOGIC:_a/o x 0, GCS 14, sleeping comfortably, moves all extremities x 4 without motor or sensory deficit PSYCHIATRIC: Unable to assess 2/2 baseline mental status (Destiny Moreno) Course Vital Signs 12/04/23 12/04/23 12/04/23 03:25 05:00 11:00 Temperature 97.4 F L Pulse Rate 88 79 61 Respiratory 16 18 17 Rate Blood Pressure 113/52 129/66 151/64 O2 Sat by Pulse 98 97 97 Oximetry EKG Findings - EKG Comments: EKG Findings:: EKG interpretation. Sinus rhythm. Rate 76 redetermine@. [place] interval 140 ms. QRS duration 91 ms. QT/QTc 376/4 6 ms. Normal axis. No ST elevations or depressions. No arrhythmia <Destiny Moreno - Last Filed: 12/09/23 12:33> Medical Decision Making - Lab Data Result diagrams: 12/04/23 05:28 12/04/23 05:28 <Ja Fung - Last Filed: 12/05/23 07:47> - Lab Data Result diagrams: 12/04/23 05:28 12/04/23 05:28 <Destiny Moreno - Last Filed: 12/09/23 12:33> - Medical Decision Making Patient care signed out at shift change awaiting urinalysis, urinalysis negative for infection. Patient stable for discharge, return to assisted. (Ja Fung) Was pt. sent in by a medical professional or institution (, PA, SQL DEVELOPER, urgent care, hospital, or assisted...) When possible be specific @ Sent by mediloe Did you speak to anyone other than the patient for history (EMS, parent, family, police, friend...)? What history was obtained from this source @ -No Did you review nursing and triage notes (agree or disagree)? Why? @ -I reviewed and agree with nursing and triage notes Were old charts reviewed (outside hosp., previous admission, EMS record, old EKG, old radiological studies, urgent care reports/EKG's, assisted records)? Report findings @ Reviewed discharge summary from patient's recent admission on 11/30/2023. This patient was admitted for total hip arthroplasty, discharged after reassuring postop course Differential Diagnosis (chest pain, altered mental status, abdominal pain women, abdominal pain men, vaginal bleeding, weakness, fever, dyspnea, syncope, headache, dizziness, GI bleed, back pain, seizure, CVA, palpatations, mental health, musculoskeletal)? @ -Differential Altered Mental Status: Differential diagnosis remains broad however top considerations include hypoglycemia, hypercapnia, EtOH, medication side effect, postop pain, myxedema coma, infection, psychosis, hepatic encephalopathy this is not all-inclusive list EKG interpreted by me (3pts min.). @ -As above X-rays interpreted by me (1pt min.). @Chest x-ray shows no cardiomegaly or pleural effusions CT interpreted by me (1pt min.). @ -CT brain without evidence of hemorrhage or mass effect U/S interpreted by me (1pt. min.). @ -None done What testing was considered but not performed or refused? (CT, X-rays, U/S, labs)? Why? @ -None What meds were considered but not given or refused? Why? @ -None Did you discuss the management of the patient with other professionals (pr ofessionals i.e. , PA, SQL DEVELOPER, lab, RT, psych nurse, social science research assistant, certified midwife, teacher, chief administrative officer, piano case maker)? Give summary @ -No Was smoking cessation discussed for >3mins.? @ -No Was critical care preformed (if so, how long)? @ -No Were there social determinants of health that impacted care today? How? (Homelessness, low income, unemployed, alcoholism, drug addiction, transportation, low edu. Level, literacy, decrease access to med. care, residential, rehab)? @ -No Was there de-escalation of care discussed even if they declined (Discuss DNR or withdrawal of care, Hospice)? @ -No What co-morbidities impacted this encounter? (DM, HTN, Smoking, COPD, CAD, Cancer, CVA, ARF, Chemo, Hep., AIDS, mental health diagnosis, sleep apnea, morbid obesity)? @ -Dementia Was patient admitted / discharged? Hospital course, mention meds given and route, prescriptions, significant lab abnormalities, going to OR and other pertinent info. @ -Hospital course Patient is a 78-year-old male with a past medical history of severe Alzheimer's dementia, recent admission for hip fracture presenting from the [facility] for agitated behavior that they cannot control with multiple dose of Haldol. I was initially contacted by RN while I was caring for a critically ill patient, RN reported pt to be agitated, kicking at staff. She reported patient's medical history and medications trialed court interpreter. I could not immediately come to bedside to evaluate the patient so 5 mg IM zyprexa was ordered for patient and staff safet y. I was able to evaluate patient after administration of zyprexa and patient sleeping comfortably on my assessment. Opens eyes to voice, confused speech, localizes to pain. No focal neurologic deficits. Calm and sleeping on my assessment. LCTAB, normal S1/2 on cardiac exam, abdomen is soft but mildly distended, active bowel sounds, no masses palpated, patient does appear to guard and grimace when his abdomen is palpated. I suspect patient's agitation is secondary to pain either from recent hip surgery or abdominal pain/acute intra- abdominal process. He has no clear facial droop, moves all 4 extremities, right lower extremity is not erythematous, not swollen. Will obtain an altered mental status workup including CT brain, chest x-ray to rule out postop pneumonia/infection, comprehensive labs, in addition to CT abdomen pelvis, given exam and history significant limited by patient's dementia. Discussed with RN plan for pain control with morphine administration should patient become again agitated, per chart review, patient was discharged home with norco, so should not be opioid naive and safe to receive opioid administration. Labs reviewed, no leukocytosis, white blood cell count 5.7, hemoglobin at baseline at 10, AST 91 is slightly increased from 11/19/2023 which was 24 other cam total bilirubin and ALT within normal limits lactic 1.7, labs altogether reassuring. Pending urinalysis patient signed out to oncoming physician Dr. Fung. Anticipate discharge to facility. Reviewed CT abdomen pelvis, no acute process, CT brain showed no acute process. Undiagnosed new problem with uncertain prognosis? @ -No Drug Therapy requiring intensive monitoring for toxicity (Heparin, Nitro, Insulin, Cardizem)? @ -No Were any procedures done? @ -No Diagnosis/symptom? @Acute agitation Acute, or Chronic, or Acute on Chronic? @ -Acute Uncomplicated (without systemic symptoms) or Complicated (systemic symptoms)? @ -Complicated Side effects of treatment? @ -No Exacerbation, Progression, or Severe Exacerbation? @ -No Poses a threat to life or bodily function? How? (Chest pain, USA, ND, pneumonia, PE, COPD, DKA, ARF, appy, cholecystitis, CVA, Diverticulitis, Homicidal, Suicidal, threat to staff... and all critical care pts) @Yes, if allowed to continue untreated, patient could harm self or others (Destiny Moreno) - Lab Data Lab Results 12/04/23 12/04/23 12/04/23 Range/Units 05:10 05:10 05:28 WBC 5.7 (3.8-10.6) k/uL RBC 3.22 L (4.30-5.90) m/uL Hgb 10.0 L D (13.0-17.5) gm/dL Hct 30.4 L (39.0-53.0) % MCV 94.6 (80.0-100.0) fL MCH 31.0 (25.0-35.0) pg MCHC 32.7 (31.0-37.0) g/dL RDW 12.6 (11.5-15.5) % Plt Count 183 (150-450) k/uL MPV 9.0 Neutrophils % 71 % Lymphocytes % 15 % Monocytes % 10 % Eosinophils % 2 % Basophils % 0 % Neutrophils # 4.0 (1.3-7.7) k/uL Lymphocytes # 0.8 L (1.0-4.8) k/uL Monocytes # 0.5 (0-1.0) k/uL Eosinophils # 0.1 (0-0.7) k/uL Basophils # 0.0 (0-0.2) k/uL PT (10.0-12.5) sec INR (<1.2) APTT (22.0-30.0) sec Sodium (137-145) mmol/L Potassium (3.5-5.1) mmol/L Chloride (98-107) mmol/L Carbon Dioxide (22-30) mmol/L Anion Gap mmol/L BUN (9-20) mg/dL Creatinine (0.66-1.25) mg/dL Est GFR (CKD-EPI)AfAm (>60 ml/min/1.73 sqM) Est GFR (CKD-EPI)NonAf (>60 ml/min/1.73 sqM) Glucose (74-99) mg/dL Plasma Lactic Acid Vinod 1.7 (0.7-2.0) mmol/L Calcium (8.4-10.2) mg/dL Total Bilirubin (0.2-1.3) mg/dL AST (17-59) U/L ALT (4-49) U/L Alkaline Phosphatase (38-126) U/L Ammonia <9 (<30) umol/L Troponin I (0.000-0.034) ng/mL Total Protein (6.3-8.2) g/dL Albumin (3.5-5.0) g/dL Urine Color Urine Appearance (Clear) Urine pH (5.0-8.0) Ur Specific [place] (1.001-1.035) Urine Protein (Negative) Urine Glucose (UA) (Negative) Urine Ketones (Negative) Urine Blood (Negative) Urine Nitrite (Negative) Urine Bilirubin (Negative) Urine Urobilinogen (<2.0) mg/dL Ur Leukocyte Esterase (Negative) Urine RBC (0-5) /hpf Urine WBC (0-5) /hpf Urine Mucus (None) /hpf 12/04/23 12/04/23 12/04/23 Range/Units 05:28 05:45 05:45 WBC (3.8-10.6) k/uL RBC (4.30-5.90) m/uL Hgb (13.0-17.5) gm/dL Hct (39.0-53.0) % MCV (80.0-100.0) fL MCH (25.0-35.0) pg MCHC (31.0-37.0) g/dL RDW (11.5-15.5) % Plt Count (150-450) k/uL MPV Neutrophils % % Lymphocytes % % Monocytes % % Eosinophils % % Basophils % % Neutrophils # (1.3-7.7) k/uL Lymphocytes # (1.0-4.8) k/uL Monocytes # (0-1.0) k/uL Eosinophils # (0-0.7) k/uL Basophils # (0-0.2) k/uL PT 10.2 (10.0-12.5) sec INR 0.9 (<1.2) APTT 23.9 (22.0-30.0) sec Sodium 137 (137-145) mmol/L Potassium 4.0 (3.5-5.1) mmol/L Chloride 104 (98-107) mmol/L Carbon Dioxide 29 (22-30) mmol/L Anion Gap 4 mmol/L BUN 22 H (9-20) mg/dL Creatinine 0.92 (0.66-1.25) mg/dL Est GFR (CKD-EPI)AfAm >90 (>60 ml/min/1.73 sqM) Est GFR (CKD-EPI)NonAf 79 (>60 ml/min/1.73 sqM) Glucose 99 (74-99) mg/dL Plasma Lactic Acid Vinod (0.7-2.0) mmol/L Calcium 8.7 (8.4-10.2) mg/dL Total Bilirubin 0.9 (0.2-1.3) mg/dL AST 91 H (17-59) U/L ALT 26 (4-49) U/L Alkaline Phosphatase 56 (38-126) U/L Ammonia (<30) umol/L Troponin I 0.024 (0.000-0.034) ng/mL Total Protein 5.7 L (6.3-8.2) g/dL Albumin 3.4 L (3.5-5.0) g/dL Urine Color Urine Appearance (Clear) Urine pH (5.0-8.0) Ur Specific [place] (1.001-1.035) Urine Protein (Negative) Urine Glucose (UA) (Negative) Urine Ketones (Negative) Urine Blood (Negative) Urine Nitrite (Negative) Urine Bilirubin (Negative) Urine Urobilinogen (<2.0) mg/dL Ur Leukocyte Esterase (Negative) Urine RBC (0-5) /hpf Urine WBC (0-5) /hpf Urine Mucus (None) /hpf 12/04/23 Range/Units 09:27 WBC (3.8-10.6) k/uL RBC (4.30-5.90) m/uL Hgb (13.0-17.5) gm/dL Hct (39.0-53.0) % MCV (80.0-100.0) fL MCH (25.0-35.0) pg MCHC (31.0-37.0) g/dL RDW (11.5-15.5) % Plt Count (150-450) k/uL MPV Neutrophils % % Lymphocytes % % Monocytes % % Eosinophils % % Basophils % % Neutrophils # (1.3-7.7) k/uL Lymphocytes # (1.0-4.8) k/uL Monocytes # (0-1.0) k/uL Eosinophils # (0-0.7) k/uL Basophils # (0-0.2) k/uL PT (10.0-12.5) sec INR (<1.2) APTT (22.0-30.0) sec Sodium (137-145) mmol/L Potassium (3.5-5.1) mmol/L Chloride (98-107) mmol/L Carbon Dioxide (22-30) mmol/L Anion Gap mmol/L BUN (9-20) mg/dL Creatinine (0.66-1.25) mg/dL Est GFR (CKD-EPI)AfAm (>60 ml/min/1.73 sqM) Est GFR (CKD-EPI)NonAf (>60 ml/min/1.73 sqM) Glucose (74-99) mg/dL Plasma Lactic Acid Vinod (0.7-2.0) mmol/L Calcium (8.4-10.2) mg/dL Total Bilirubin (0.2-1.3) mg/dL AST (17-59) U/L ALT (4-49) U/L Alkaline Phosphatase (38-126) U/L Ammonia (<30) umol/L Troponin I (0.000-0.034) ng/mL Total Protein (6.3-8.2) g/dL Albumin (3.5-5.0) g/dL Urine Color Light Yellow Urine Appearance Clear (Clear) Urine pH 5.5 (5.0-8.0) Ur Specific [place] 1.020 (1.001-1.035) Urine Protein Trace H (Negative) Urine Glucose (UA) Negative (Negative) Urine Ketones Negative (Negative) Urine Blood Moderate H (Negative) Urine Nitrite Negative (Negative) Urine Bilirubin Negative (Negative) Urine Urobilinogen <2.0 (<2.0) mg/dL Ur Leukocyte Esterase Negative (Negative) Urine RBC 12 H (0-5) /hpf Urine WBC 1 (0-5) /hpf Urine Mucus Rare H (None) /hpf Disposition Is patient prescribed a controlled substance at d/c from ED?: No Time of Disposition: 09:50 <TanjapedroJa Osborne - Last Filed: 12/05/23 07:47> <EnglishDestiny - Last Filed: 12/09/23 12:33> Clinical Impression: Agitation Disposition: HOME SELF-CARE Condition: Fair Instructions (If sedation given, give patient instructions): Dementia (ED) Additional Instructions: Every disease is a spectrum and a small chance still exists that a serious condition could develop, for this reason, please monitor yourself/the patient closely for new, changing or worsening symptoms, symptoms that persist beyond 24 hours, symptoms that cannot be controlled with home medications, decreased responsiveness, uncontrollable pain fever, inability to tolerate/keep down fluids or your /his medications, inability to follow up with outpatient providers as instructed and should the patient experience these symptoms or should you have any further concerns for his wellbeing please return to the ED or call 911 immediately. PLEASE call your primary care physician as soon as possible to arrange / discuss plan for followup appointment. Appointment in the next 1-3 days is strongly encouraged if possible. PLEASE let us know here before you leave if there is anything further we can do to be of any assistance. Take care and feel Better! Referrals: Russell Montiel MD [Primary Care Provider] - 1-2 days
[2023-12-04 06:08] LABS: Basophils % (A) 0 %; Eosinophils # (A) 0.1 k/uL (0-0.7); Eosinophils % (A) 2 %; HCT 30.4 % (39.0-53.0); Lymphocytes # (A) 0.8 k/uL (1.0-4.8); Lymphocytes % (A) 15 %; MCHC 32.7 g/dL (31.0-37.0); MCV 94.6 fL (80.0-100.0); Monocytes # (A) 0.5 k/uL (0-1.0); Monocytes % (A) 10 %; Neutrophils % (A) 71 %; Platelet Count 183 k/uL (150-450); RBC 3.22 m/uL (4.30-5.90); RDW 12.6 % (11.5-15.5); WBC 5.7 k/uL (3.8-10.6)
[2023-12-04 06:13] LABS: ALT 26 U/L (4-49); AST 91 U/L (17-59); African American GFR (CKD) >90 (>60 ml/min/1.73 sqM); Albumin 3.4 g/dL (3.5-5.0); Alkaline Phosphatase 56 U/L (38-126); Anion Gap 4 mmol/L; Blood Urea Nitrogen 22 mg/dL (9-20); Calcium 8.7 mg/dL (8.4-10.2); Carbon Dioxide 29 mmol/L (22-30); Chloride 104 mmol/L (98-107); Glucose 99 mg/dL (74-99); Non-African American GFR(CKD) 79 (>60 ml/min/1.73 sqM); Sodium 137 mmol/L (137-145); Total Bilirubin 0.9 mg/dL (0.2-1.3); Total Protein 5.7 g/dL (6.3-8.2)
[2023-12-04 06:17] LABS: INR 0.9 (<1.2); Partial Thromboplastin Time 23.9 sec (22.0-30.0); Prothrombin Time 10.2 sec (10.0-12.5)
[2023-12-04] MEDS: MORPHINE SULFATE 4 MG/ML SYRINGE IM STA (06:25)
[2023-12-04] MEDS: SODIUM CHLORIDE 0.9% 500 ML 500 ML IV ONE (06:25)
--- NOTE | 2023-12-04 07:32 | CT ---
EXAMINATION TYPE: CT brain wo con DATE OF EXAM: 12/04/2023 COMPARISON: None HISTORY: Altered mental status, agitation Unenhanced CT of the brain was performed. The ventricles, basal cisterns and sulci overlying the cerebral convexities demonstrate mild enlargem ent. There is no evidence for intracranial hemorrhage or sulcal effacement. There is decreased attenuation about the periventricular white matter and deep white matter of both c erebral hemispheres, compatible with chronic small vessel ischemia. Differential diagnosis does inclu de demyelination. No mass effects are seen.No midline shift. Osseous calvarium is intact. If symptoms persist consider MRI. IMPRESSION: 1. Age related atrophic and chronic small vessel ischemic change without acute intracranial process s een at this time. [facility], , 12/04/2023 7:30 AM
--- NOTE | 2023-12-04 07:40 | CT ---
EXAMINATION TYPE: CT abdomen pelvis wo con DATE OF EXAM: 12/04/2023 COMPARISON: None HISTORY: altered, dementia, guarding with palpation of abdo Examination of the solid and hollow viscera is limited given the lack of contrast. FINDINGS: LUNG BASES: No evidence for nodule. No evidence for infiltrate. LIVER/GB: The gallbladder is unremarkable. No space-occupying hepatic lesion. PANCREAS: No pancreatic mass identified. No inflammatory process seen. SPLEEN: No evidence for splenomegaly. No intrasplenic lesions seen. ADRENALS: No adrenal nodules identified. No evidence for thickening. KIDNEYS: No evidence for renal mass. No nephrolithiasis. No hydronephrosis. Calcifications are noted to layer within the urinary bladder. BOWEL: Appendix has a normal appearance. No evidence of bowel obstruction. No inflammatory process. M ild scattered intracolonic fecal stasis. Lymph nodes: No evidence for adenopathy greater than 1 cm. Abdominal aorta: Atheromatous changes seen. Infrarenal abdominal aortic aneurysm measuring 4 cm witho ut complicating factor. Genital organs: Prostate gland calcifications noted. Other: Left hip prosthesis with streak limiting artifact. IMPRESSION: 1. No acute process appreciated with certainty at this time. 2. Incidental findings as noted [facility], , 12/04/2023 7:37 AM
--- NOTE | 2023-12-04 07:52 | XR ---
EXAMINATION TYPE: XR chest 1V portable DATE OF EXAM: 12/04/2023 HISTORY: Shortness of breath. COMPARISON: None. TECHNIQUE: Single view of the chest is submitted. FINDINGS: Demonstrated are scattered senescent parenchymal change. There is no evidence for focal infiltrate. The heart is stable. Hilar and mediastinal structures are within normal limits. Degenerative changes are seen of the dorsal spine. IMPRESSION: 1. Chronic changes without evidence for acute pulmonary disease. [facility], , 12/04/2023 7:50 AM
[2023-12-04 09:48] LABS: Appearance,Urine Clear (Clear); Bilirubin,Urine Negative (Negative); Blood,Urine Moderate (Negative); Color,Urine Light Yellow; Glucose,Urine (UA) Negative (Negative); Ketones,Urine Negative (Negative); Leukocyte Esterase,Urine Negative (Negative); Mucus,Urine Rare /hpf; Nitrite,Urine Negative (Negative); PH, Urine 5.5 (5.0-8.0); Protein,Urine Trace (Negative); RBC,Urine 12 /hpf (0-5); Urobilinogen,Urine <2.0 mg/dL (<2.0); WBC,Urine 1 /hpf (0-5)
[2023-12-04 11:44] VITALS: BP 151/64; PULSE 61; RESP 17
== END 2023-12-04 13:00 | disposition home or self-care (01) ==
LOC: EC 03:22
CPT/HCPCS: 36415; 51701; 70450; 71045; 74176; 80053; 81001; 82140; 83605; 84484; 85025; 85610; 85730; 93005; 96360; 96372; 99285

== ENCOUNTER 2023-12-31 14:20 | Emergency (ER) | payer MEDICARE, OTHER ==
--- NOTE | 2023-12-31 16:08 | ED ---
Abdominal Pain HPI - General Chief Complaint: Abdominal Pain Stated Complaint: Abd pain Time Seen by Provider: 12/31/23 15:21 Source: patient, family Mode of arrival: wheelchair Limitations: no limitations - History of Present Illness Initial Comments: Patient is a 78-year-old male presenting today for abdominal pain and distention. Last bowel movement was yesterday. Patient was being seen by his home health nurse this morning and she did not auscultate bowel sounds on his abdominal exam so sent him to the emergency room. They called patient's primary care provider who sent him to the emergency department. Patient's last BM yesterday morning was normal soft stool form. Has had BM every day for the last 3 to 4 days. No black or bloody stools. Endorses nausea but no emesis. Did have 1 abdominal surgery at the age of 6 weeks old unsure exactly what he had done. Otherwise had hip surgery approximately 1 month ago. Has been at a nursing facility until 1 week ago. While he was at the nursing facility he was having urinary frequency so Xiong catheter was inserted 2 weeks ago. Patient follow-up with his urologist yesterday who decided to maintain the Xiong. Patient's son-in-law at bedside was unsure why or what exactly happened at that appointment. Patient does endorse decreased urine output. No hematuria. No fevers or chills. No chest pain or shortness of breath. - Related Data Home Medications Medication Instructions Recorded Confirmed Atorvastatin [Lipitor] 40 mg PO HS 11/23/23 12/04/23 lisinopriL [Zestril] 5 mg PO DAILY 11/23/23 12/04/23 Aspirin EC [Ecotrin] 325 mg PO BID 12/04/23 12/04/23 HYDROcodone/APAP 7.5-325MG [[place] 1 - 2 tab PO Q6H PRN 12/04/23 12/04/23 7.5-325] Sennosides [Senokot] 17.2 mg PO DAILY PRN 12/04/23 12/04/23 Previous Rx's Medication Instructions Recorded Donepezil [Aricept] 5 mg PO HS tab 12/03/23 Famotidine [Pepcid] 20 mg PO DAILY tab 12/03/23 Magnesium Hydroxide [Milk of 2,400 mg PO DAILY PRN ml 10/03/24 Magnesia] Cephalexin [Keflex] 500 mg PO Q6HR 10 Days #10 cap 12/31/23 Allergies Allergy/AdvReac Type Severity Reaction Status Date / Time Iodinated Contrast Media Allergy Swelling Verified 12/31/23 14:56 Review of Systems ROS Statement: Those systems with pertinent positive or pertinent negative responses have been documented in the HPI. ROS Other: All systems not noted in ROS Statement are negative. Limitations: ROS unobtainable due to patients medical condition Past Medical History Past Medical History: Hearing Disorder / Deafness, Hyperlipidemia, Hypertension, Memory Impairment Additional Past Medical History / Comment(s): being tested for cognitive decline, short term memory loss, C[place]- no hearing aids; left lower leg wound- scabbed and healed per sister, aware to notify Dr. Baxter of any changes. History of Any Multi-Drug Resistant Organisms: None Reported Past Surgical History: Heart Catheterization With Stent Past Anesthesia/Blood Transfusion Reactions: No Reported Reaction Date of Last Stent Placement:: 2021 Past Psychological History: No Psychological Hx Reported Smoking Status: Never smoker Past Alcohol Use History: Occasional Past Drug Use History: None Reported - Past Family History Father Family Medical History: Coronary Artery Disease (CAD) Additional Family Medical History / Comment(s): CABG Mother Family Medical History: Coronary Artery Disease (CAD) Additional Family Medical History / Comment(s): CABG General Exam - General Exam Comments Initial Comments: PE: CONSTITUTIONAL: No apparent distress, chronically ill appearing, nontoxic SKIN: Warm, dry, no jaundice, hives or petechiae, post surgical site on left hip nonerythematous, no discharge EYES: Pupils are equally round, extraocular movements intact without nystagmus, clear conjunctiva, non-icteric sclera HENT: Normocephalic, atraumatic, moist mucus membranes, oropharynx clear without exudates NECK: , Full range of motion, normal appearance PULMONARY: Clear to auscultation without wheezes, rhonchi, or rales, normal excursion, no accessory muscle use and no stridor CARDIOVASCULAR: Regular rate, rhythm, normal S1 and S2. No appreciated murmurs, rubs or gallops. Strong radial pulses with intact distal perfusion. No lower extremity edema GASTROINTESTINAL: Firm, decreased bowel sounds, , tenderness of the suprapubic region, distended, no palpable masses, guarding with palpation, No hepatosplenomegaly GENITOURINARY: MUSCULOSKELETAL: Extremities have no gross deformity, no edema, redness, or swelling. No calf swelling NEUROLOGIC:_a/o x 2, GCS 15, normal mentation and speech. Moves all extremities x 4 without motor or sensory deficit PSYCHIATRIC:_normal mood and affect, thought process is clear and linear Limitations: no limitations Course Vital Signs 12/31/23 12/31/23 12/31/23 14:57 18:19 20:39 Temperature 97.4 F L 97.6 F 97.8 F Pulse Rate 90 72 71 Respiratory 18 16 18 Rate Blood Pressure 110/65 131/63 116/61 O2 Sat by Pulse 98 99 97 Oximetry - Reevaluation(s) Reevaluation #1: Placement patient's ultrasound bladder showed over 650 cc of urine in the bladder, will replace Xiong catheter and if improvement/resolution of symptoms we will forego imaging unless significant lab abnormalities. 12/31/23 16:26 Medical Decision Making - Medical Decision Making Was pt. sent in by a medical professional or institution (, PA, [facility]TER, urgent care, hospital, or penitentiary...) When possible be specific @ -No Did you speak to anyone other than the patient for history (EMS, parent, family, police, friend...)? What history was obtained from this source @ -No Did you review nursing and triage notes (agree or disagree)? Why? @ -I reviewed nursing and triage notes, patient has decreased bowel sounds my assessment though not absent. Were old charts reviewed (outside hosp., previous admission, EMS record, old EKG, old radiological studies, urgent care reports/EKG's, penitentiary records)? Report findings @ -Medical records reviewed Differential Diagnosis (chest pain, altered mental status, abdominal pain women, abdominal pain men, vaginal bleeding, weakness, fever, dyspnea, syncope, headache, dizziness, GI bleed, back pain, seizure, CVA, palpatations, mental health, musculoskeletal)? @Differential Abdominal Pain Men: Bowel obstruction, urinary tract obstruction, UTI, ileus, constipation, this is not meant to be an all-inclusive list EKG interpreted by me (3pts min.). @ -As above X-rays interpreted by me (1pt min.). @ -None done CT interpreted by me (1pt min.). @No evidence of obstruction, no free air, no dilated bowel loops, reviewed abdominal aortic aneurysm and compared to prior performed on 12/04/2023, no significant changes from prior U/S interpreted by me (1pt. min.). @ -None done What testing was considered but not performed or refused? (CT, X-rays, U/S, labs)? Why? @ -None What meds were considered but not given or refused? Why? @ -None Did you discuss the management of the patient with other professionals (professionals i.e. , PA, [facility], lab, RT, psych nurse, social media senior associate, clinical biostatistician, teacher, hearing officer, sample case porter)? Give summary @ -No Was smoking cessation discussed for >3mins.? @ -No Was critical care preformed (if so, how long)? @ -No Were there social determinants of health that impacted care today? How? (Homelessness, low income, unemployed, alcoholism, drug addiction, transportation, low edu. Level, literacy, decrease access to med. care, half-way, rehab)? @ -No Was there de-escalation of care discussed even if they declined (Discuss DNR or withdrawal of care, Hospice)? @ -No What co-morbidities impacted this encounter? (DM, HTN, Smoking, COPD, CAD, Cancer, CVA, ARF, Chemo, Hep., AIDS, mental health diagnosis, sleep apnea, m orbid obesity)? @Memory impairment Was patient admitted / discharged? Hospital course, mention meds given and route, prescriptions, significant lab abnormalities, going to OR and other pertinent info. @Discharged- Patient is a 78-year-old male with past medical history of recent hip arthroplasty, indwelling Xiong catheter, hypertension, hyperlipidemia, memory problems presenting with his son-in-law today for bowel distention with concern for bowel obstruction. On my assessment patient chronically ill-appearing but nontoxic, sitting upright in bed. Abdomen is distended and firm, decreased bowel sounds throughout, about 200 cc annually Xiong catheter. Plan for upper abdominal films to assess for bowel obstruction, if nondiagnostic will proceed to CT scan. Ordered bladder scan. Additionally plan for labs and IV fluids. Discussed plan with patient's son-in-law at bedside. Agreeable plan of care. Patient had 650 cc urine in bladder. Was drained and xiong replaced.. On reassessment abdomen is more soft, less distended. Less painful. XRs cancelled, due to obvious source of abdominal distention. Will await labs before discharge. If signficant lab abnormalities will consider CT a/p, to ensure no other acute intra-abdominal pathology. Patient's son in law and patient agreeable with plan. Lactic 3.4, mild leukocytosis noted 3.17.8. Urinalysis with signs infection. I discussed with patient son-in-law and patient improvement in exam in the setting of these laboratory findings. Cannot still entirely rule out an acute intra-abdominal pathology though I suspect presentation was secondary to urinary retention. Patient and son-in-law would like to obtain further imaging prior to discharge to ensure no other acute intra-abdominal abnormality. CT abdomen pelvis without contrast ordered CT A/p reviewed, showed Abdominal aortic aneurysm measuring 4.1 cm, extension of the left common iliac artery, no suspicious bowel abnormality mild right hydroureter no obstructing etiology. I suspect this is secondary to patient's recent urinary tract obstruction from xiong catheter. Reviewed CT abdomen pelvis performed 12/04/2023, at that point did show similar 4 cm abdominal aortic aneurysm. No significant changes today. On reassessment patient states pain has improved. Lactic downtrended 2.0, patient afebrile. Temp on arrival 97.4 F however repeat wnl. Updated patient and son-in-law to findings. Additionally we discussed abdominal aortic aneurysm and the importance of close follow-up with his primary care provider for monitoring in the next 6 months. Patient and son-in-law are comfortable patient being discharged at this point. Will discharge home with cephalexin. Xiong catheter continues to drain clear urine. I discussed with patient and son-in-law signs symptoms warranting return to the ER. Patient discharged in stable condition. In my medical judgment there is currently no evidence of an immediate life- threatening or surgical condition. Discharge is therefore indicated at this time. Discharge treatment instructions, follow up instructions, and appropriate emergency department return precautions were discussed with the patient and/or medical decision maker. Patient and/or medical decision maker expressed understanding of and agreed with the treatment plan, follow up instructions, and emergency department return precaution. All patient's and/or medical decision maker's questions were answered. Undiagnosed new problem with uncertain prognosis? @ -No Drug Therapy requiring intensive monitoring for toxicity (Heparin, Nitro, Insulin, Cardizem)? @ -No Were any procedures done? @ -No Diagnosis/symptom? @ -UTI, urinary retention Acute, or Chronic, or Acute on Chronic? @ Acute Uncomplicated (without systemic symptoms) or Complicated (systemic symptoms)? @ Complicated Side effects of treatment? @ -No Exacerbation, Progression, or Severe Exacerbation? @ -No Poses a threat to life or bodily function? How? (Chest pain, USA, DC, pneumonia, PE, COPD, DKA, ARF, appy, cholecystitis, CVA, Diverticulitis, Homicidal, Suicidal, threat to staff... and all critical care pts) @ -Unlikely - Lab Data Result diagrams: 12/31/23 16:12 12/31/23 16:12 Lab Results 12/31/23 12/31/23 12/31/23 Range/Units 16:12 16:12 16:12 WBC 17.8 H (3.8-10.6) k/uL RBC 4.12 L (4.30-5.90) m/uL Hgb 12.3 L (13.0-17.5) gm/dL Hct 38.3 L (39.0-53.0) % MCV 93.1 (80.0-100.0) fL MCH 29.9 (25.0-35.0) pg MCHC 32.2 (31.0-37.0) g/dL RDW 13.0 (11.5-15.5) % Plt Count 231 (150-450) k/uL MPV 8.6 Neutrophils % 91 % Lymphocytes % 5 % Monocytes % 3 % Eosinophils % 0 % Basophils % 1 % Neutrophils # 16.2 H (1.3-7.7) k/uL Lymphocytes # 0.8 L (1.0-4.8) k/uL Monocytes # 0.6 (0-1.0) k/uL Eosinophils # 0.0 (0-0.7) k/uL Basophils # 0.1 (0-0.2) k/uL PT 10.6 (10.0-12.5) sec INR 1.0 (<1.2) APTT 20.7 L (22.0-30.0) sec Sodium (137-145) mmol/L Potassium (3.5-5.1) mmol/L Chloride (98-107) mmol/L Carbon Dioxide (22-30) mmol/L Anion Gap mmol/L BUN (9-20) mg/dL Creatinine (0.66-1.25) mg/dL Est GFR (CKD-EPI)AfAm (>60 ml/min/1.73 sqM) Est GFR (CKD-EPI)NonAf (>60 ml/min/1.73 sqM) Glucose (74-99) mg/dL Lactic Ac Sepsis Rflx Plasma Lactic Acid Vinod (0.7-2.0) mmol/L Calcium (8.4-10.2) mg/dL Total Bilirubin (0.2-1.3) mg/dL AST (17-59) U/L ALT (4-49) U/L Alkaline Phosphatase (38-126) U/L Total Protein (6.3-8.2) g/dL Albumin (3.5-5.0) g/dL Amylase (30-110) U/L Lipase (23-300) U/L Urine Color Light Yellow Urine Appearance Turbid (Clear) Urine pH 8.5 H (5.0-8.0) Ur Specific [place] 1.012 (1.001-1.035) Urine Protein 2+ H (Negative) Urine Glucose (UA) Negative (Negative) Urine Ketones Negative (Negative) Urine Blood Trace H (Negative) Urine Nitrite Positive (Negative) Urine Bilirubin Negative (Negative) Urine Urobilinogen <2.0 (<2.0) mg/dL Ur Leukocyte Esterase Large H (Negative) Urine RBC 27 H (0-5) /hpf Urine WBC >182 H (0-5) /hpf Calcium Oxalate Crystal Few H (None) /hpf Amorphous Sediment Few H (None) /hpf Urine Bacteria Many H (None) /hpf Blood Type Blood Type Recheck Bld Type Recheck Status Antibody Screen Spec Expiration Date 12/31/23 12/31/23 12/31/23 Range/Units 16:12 16:12 16:15 WBC (3.8-10.6) k/uL RBC (4.30-5.90) m/uL Hgb (13.0-17.5) gm/dL Hct (39.0-53.0) % MCV (80.0-100.0) fL MCH (25.0-35.0) pg MCHC (31.0-37.0) g/dL RDW (11.5-15.5) % Plt Count (150-450) k/uL MPV Neutrophils % % Lymphocytes % % Monocytes % % Eosinophils % % Basophils % % Neutrophils # (1.3-7.7) k/uL Lymphocytes # (1.0-4.8) k/uL Monocytes # (0-1.0) k/uL Eosinophils # (0-0.7) k/uL Basophils # (0-0.2) k/uL PT (10.0-12.5) sec INR (<1.2) APTT (22.0-30.0) sec Sodium 136 L (137-145) mmol/L Potassium 4.7 (3.5-5.1) mmol/L Chloride 101 (98-107) mmol/L Carbon Dioxide 24 (22-30) mmol/L Anion Gap 11 mmol/L BUN 22 H (9-20) mg/dL Creatinine 1.36 H (0.66-1.25) mg/dL Est GFR (CKD-EPI)AfAm 57 (>60 ml/min/1.73 sqM) Est GFR (CKD-EPI)NonAf 49 (>60 ml/min/1.73 sqM) Glucose 167 H (74-99) mg/dL Lactic Ac Sepsis Rflx Plasma Lactic Acid Vinod 3.4 H* (0.7-2.0) mmol/L Calcium 9.3 (8.4-10.2) mg/dL Total Bilirubin 0.6 (0.2-1.3) mg/dL AST 21 (17-59) U/L ALT 17 (4-49) U/L Alkaline Phosphatase 99 (38-126) U/L Total Protein 6.9 (6.3-8.2) g/dL Albumin 4.3 (3.5-5.0) g/dL Amylase 40 (30-110) U/L Lipase 49 (23-300) U/L Urine Color Urine Appearance (Clear) Urine pH (5.0-8.0) Ur Specific [place] (1.001-1.035) Urine Protein (Negative) Urine Glucose (UA) (Negative) Urine Ketones (Negative) Urine Blood (Negative) Urine Nitrite (Negative) Urine Bilirubin (Negative) Urine Urobilinogen (<2.0) mg/dL Ur Leukocyte Esterase (Negative) Urine RBC (0-5) /hpf Urine WBC (0-5) /hpf Calcium Oxalate Crystal (None) /hpf Amorphous Sediment (None) /hpf Urine Bacteria (None) /hpf Blood Type O Positive Blood Type Recheck O Pos Bld Type Recheck Status No Antibody Screen NEGATIVE Spec Expiration Date 01/03/2024 - 231412/31/23 12/31/23 Range/Units 16:47 18:59 WBC (3.8-10.6) k/uL RBC (4.30-5.90) m/uL Hgb (13.0-17.5) gm/dL Hct (39.0-53.0) % MCV (80.0-100.0) fL MCH (25.0-35.0) pg MCHC (31.0-37.0) g/dL RDW (11.5-15.5) % Plt Count (150-450) k/uL MPV Neutrophils % % Lymphocytes % % Monocytes % % Eosinophils % % Basophils % % Neutrophils # (1.3-7.7) k/uL Lymphocytes # (1.0-4.8) k/uL Monocytes # (0-1.0) k/uL Eosinophils # (0-0.7) k/uL Basophils # (0-0.2) k/uL PT (10.0-12.5) sec INR (<1.2) APTT (22.0-30.0) sec Sodium (137-145) mmol/L Potassium (3.5-5.1) mmol/L Chloride (98-107) mmol/L Carbon Dioxide (22-30) mmol/L Anion Gap mmol/L BUN (9-20) mg/dL Creatinine (0.66-1.25) mg/dL Est GFR (CKD-EPI)AfAm (>60 ml/min/1.73 sqM) Est GFR (CKD-EPI)NonAf (>60 ml/min/1.73 sqM) Glucose (74-99) mg/dL Lactic Ac Sepsis Rflx Y Plasma Lactic Acid Vinod 2.0 (0.7-2.0) mmol/L Calcium (8.4-10.2) mg/dL Total Bilirubin (0.2-1.3) mg/dL AST (17-59) U/L ALT (4-49) U/L Alkaline Phosphatase (38-126) U/L Total Protein (6.3-8.2) g/dL Albumin (3.5-5.0) g/dL Amylase (30-110) U/L Lipase (23-300) U/L Urine Color Urine Appearance (Clear) Urine pH (5.0-8.0) Ur Specific [place] (1.001-1.035) Urine Protein (Negative) Urine Glucose (UA) (Negative) Urine Ketones (Negative) Urine Blood (Negative) Urine Nitrite (Negative) Urine Bilirubin (Negative) Urine Urobilinogen (<2.0) mg/dL Ur Leukocyte Esterase (Negative) Urine RBC (0-5) /hpf Urine WBC (0-5) /hpf Calcium Oxalate Crystal (None) /hpf Amorphous Sediment (None) /hpf Urine Bacteria (None) /hpf Blood Type Blood Type Recheck Bld Type Recheck Status Antibody Screen Spec Expiration Date Disposition Clinical Impression: UTI (urinary tract infection), Urinary retention Disposition: HOME SELF-CARE Condition: Good Additional Instructions: Every disease is a spectrum and a small chance still exists that a serious condition could develop, for this reason, please monitor yourself closely for new, changing or worsening symptoms, return of symptoms, vomiting, fevers, no bowel movement for greater than 7 days, confusion fever, inability to tolerate/k eep down fluids or your medications, inability to follow up with outpatient providers as instructed and should you experience these symptoms or should you have any further concerns for your wellbeing please return to the ED or call 911 immediately. Please follow up with your PCP regarding monitoring abdominal aortic aneurysm. Within the next 6 months. PLEASE call your primary care physician as soon as possible to arrange / discuss plan for followup appointment. Appointment in the next 1-3 days is strongly encouraged if possible. PLEASE let us know here before you leave if there is anything further we can do to be of any assistance. Take care and feel Better! Prescriptions: Cephalexin [Keflex] 500 mg PO Q6HR 10 Days #10 cap Is patient prescribed a controlled substance at d/c from ED?: No Referrals: Jessica Shultz MD [Primary Care Provider] - 1-2 days
[2023-12-31] MEDS: SODIUM CHLORIDE 0.9% 500 ML 500 ML IV STA (16:12)
[2023-12-31] MEDS: ONDANSETRON 4 MG/2 ML VIAL IVP STA (16:12)
[2023-12-31 16:37] LABS: Basophils # (A) 0.1 k/uL (0-0.2); Basophils % (A) 1 %; Eosinophils % (A) 0 %; HCT 38.3 % (39.0-53.0); HGB 12.3 gm/dL (13.0-17.5); Lymphocytes # (A) 0.8 k/uL (1.0-4.8); Lymphocytes % (A) 5 %; MCH 29.9 pg (25.0-35.0); MCHC 32.2 g/dL (31.0-37.0); MCV 93.1 fL (80.0-100.0); Mean Platelet Volume 8.6; Monocytes # (A) 0.6 k/uL (0-1.0); Monocytes % (A) 3 %; Neutrophils # (A) 16.2 k/uL (1.3-7.7); Neutrophils % (A) 91 %; Platelet Count 231 k/uL (150-450); RBC 4.12 m/uL (4.30-5.90); WBC 17.8 k/uL (3.8-10.6)
[2023-12-31 16:46] LABS: ALT 17 U/L (4-49); AST 21 U/L (17-59); African American GFR (CKD) 57 (>60 ml/min/1.73 sqM); Albumin 4.3 g/dL (3.5-5.0); Alkaline Phosphatase 99 U/L (38-126); Amylase 40 U/L (30-110); Anion Gap 11 mmol/L; Blood Urea Nitrogen 22 mg/dL (9-20); Calcium 9.3 mg/dL (8.4-10.2); Carbon Dioxide 24 mmol/L (22-30); Chloride 101 mmol/L (98-107); Glucose 167 mg/dL (74-99); Lipase 49 U/L (23-300); Non-African American GFR(CKD) 49 (>60 ml/min/1.73 sqM); Potassium 4.7 mmol/L (3.5-5.1); Sodium 136 mmol/L (137-145); Total Bilirubin 0.6 mg/dL (0.2-1.3); Total Protein 6.9 g/dL (6.3-8.2)
[2023-12-31 16:54] LABS: Amorphous Sediment,Urine Few /hpf; Appearance,Urine Turbid (Clear); Bacteria,Urine Many /hpf; Bilirubin,Urine Negative (Negative); Blood,Urine Trace (Negative); Calcium Oxalate Crystals,Urine Few /hpf; Color,Urine Light Yellow; Glucose,Urine (UA) Negative (Negative); Ketones,Urine Negative (Negative); Leukocyte Esterase,Urine Large (Negative); Nitrite,Urine Positive (Negative); PH, Urine 8.5 (5.0-8.0); Protein,Urine 2+ (Negative); Prothrombin Time 10.6 sec (10.0-12.5); RBC,Urine 27 /hpf (0-5); Specific Gravity,Urine 1.012 (1.001-1.035); Urobilinogen,Urine <2.0 mg/dL (<2.0); WBC,Urine >182 /hpf (0-5)
[2023-12-31 17:30] LABS: Partial Thromboplastin Time 20.7 sec (22.0-30.0)
[2023-12-31] MEDS: CEFEPIME 2 GM in SODIUM CHLORIDE 0.9% 100 ML IVPB STA (18:26)
[2023-12-31] MEDS: SODIUM CHLORIDE 0.9% 500 ML 500 ML IV ONE (18:27)
--- NOTE | 2023-12-31 18:45 | CT ---
EXAMINATION TYPE: CT abdomen pelvis wo con DATE OF EXAM: 12/31/2023 COMPARISON: INDICATION: Abdominal distention. DLP: 690.7 mGycm, Automated exposure control for dose reduction was used. CONTRAST: mL of . Study performed without Oral Contrast TECHNIQUE: Axial images were obtained from above the diaphragm to the pubic rami in the axial plane a t 5 mm thick sections. Reconstructed images are reviewed on the computer in the coronal plane. FINDINGS: Limited CT sections are obtained the lung bases. The lung bases are clear. CT ABDOMEN: Liver: Normal Spleen: Normal Pancreas: Normal Adrenal glands: The adrenal glands are normal. Gallbladder: Normal Kidneys: No masses are evident. No hydronephrosis is present. No cysts are present. There is some ureteral prominence on the right with mild right hydronephrosis versus extrarenal pelvis. An obstruct ing stone is not identified. This extends to nearly the urinary bladder. Consider underlying urinary bladder abnormality. Aorta: Vascular calcification is within the aorta. There is a mid abdominal aortic aneurysm of 4.1 c m. Some fusiform prominence of the distal abdominal aorta is present with extension into the left com mon iliac artery which measures 2.5 cm. Internal and external iliac vessels appear normal as visualiz ed Inferior vena cava: Normal. CT PELVIS: Beam hardening artifact from left hip prosthesis causes some limitation of the lower pelvi s. Loops of bowel within the abdomen and pelvis are normal. Study is lateral contrast limiting evalu ation. No dilated bowel are evident. Appendix: Normal as visualized. Urinary bladder: Decompressed with Cummings catheter. Genitourinary structures: Multiple prostate calcifications are present. Osseous structures: No suspicious lytic or sclerotic lesions. IMPRESSION: 1. Abdominal aortic aneurysm 4.1 cm. This has extension to the left common iliac artery. 2. No suspicious bowel abnormality. 3. Mild right hydroureter. No obstructing etiology is identified. Consider abnormality of the bladder as possible etiology [facility], Workstation: [facility], 12/31/2023 6:42 PM
[2023-12-31 20:41] VITALS: BP 116/61; PULSE 71; RESP 18; TEMP 97.8
== END 2023-12-31 20:43 | disposition home or self-care (01) ==
LOC: EC 14:20
CPT/HCPCS: 36415; 74176; 80053; 81001; 82150; 83605; 83690; 85025; 85610; 85730; 86850; 86900; 86901; 87086; 96361; 96365; 96366; 96375; 99285

== ENCOUNTER → 2024-02-05 | Outpatient (CLI) | payer MEDICARE ==
[2024-02-05 19:03] LABS: ALT 16 U/L (10-49); AST 17 U/L (14-35); Albumin 4.1 g/dL (3.8-4.9); Albumin/Globulin Ratio 2.16 Ratio (1.60-3.17); Alkaline Phosphatase 76 U/L (41-126); BUN/Creat Ratio 15.45 Ratio (12.00-20.00); Calcium 9.2 mg/dL (8.7-10.3); Carbon Dioxide 29.5 mmol/L (21.6-31.8); Chloride 103 mmol/L (96-109); Chol/HDL Ratio 2.65 Ratio; Globulin 1.9 g/dL (1.6-3.3); Glucose 93 mg/dL (70-110); LDL Cholesterol,Calculated 63.4 mg/dL (0.0-131.0); Potassium 4.6 mmol/L (3.5-5.5); Sodium 139 mmol/L (135-145); Total Bilirubin 0.6 mg/dL (0.3-1.2); VLDL Calculation 15.68 mg/dL (5.00-40.00)
[2024-02-05 20:21] LABS: Basophils # (A) 0.05 X 10*3/uL (0.00-0.10); Basophils % (A) 0.9 %; Eosinophils # (A) 0.25 X 10*3/uL (0.04-0.35); Eosinophils % (A) 4.4 %; Lymphocytes # (A) 1.68 X 10*3/uL (0.90-5.00); Lymphocytes % (A) 29.5 %; MCH 28.8 pg (27.0-32.0); MCHC 31.6 g/dL (32.0-37.0); MCV 91.3 FL (80.0-97.0); Mean Platelet Volume 12.1 FL (9.5-12.2); Monocytes # (A) 0.65 X 10*3/uL (0.20-1.00); Monocytes % (A) 11.4 %; NRBC Per 100 WBC 0 X 10*3/uL (0.00-0.01); Neutrophils # (A) 3.05 X 10*3/uL (1.80-7.70); Neutrophils % (A) 53.4 %; Platelet Count 199 X 10*3/uL (140-440); RBC 4.16 X 10*6/uL (4.40-5.60); RDW 13.7 % (11.5-14.5)
== END | disposition home or self-care (01) ==
LOC: LABWHC1 10:57
PROVIDERS: ATTEND Nurse Practitioner Family
DX: Z00.00 Encounter for general adult medical examination without abnormal findings (principal); E78.2 Mixed hyperlipidemia
CPT/HCPCS: 36415; 80053; 80061; 84443; 85025

== ENCOUNTER → 2024-02-05 | Outpatient (CLI) | payer MEDICARE, OTHER | END | disposition home or self-care (01) | LOC: LABPAT 10:54 | PROVIDERS: ATTEND Urology | DX: Z01.812 Encounter for preprocedural laboratory examination (principal); N40.1 Benign prostatic hyperplasia with lower urinary tract symptoms; R33.9 Retention of urine, unspecified | CPT/HCPCS: 87086 ==

== ENCOUNTER 2024-02-11 06:26 | Day surgery (SDC) | payer MEDICARE, OTHER ==
[2024-02-08 15:34] VITALS: BMI 27.4
--- NOTE | 2024-02-10 22:38 | P.GSHP ---
History of Present Illness H&P Date: 02/10/24 Chief Complaint: Urinary retention The patient is a 78-year-old white male recently found to be in urinary retention. 975 cc of urine was drained from the bladder. He has a long history of voiding symptoms. He has taken tamsulosin sporadically in the past. Urodynamic testing suggest normal detrusor function. Cystoscopy shows an obstructing prostate with multiple tiny bladder calculi. The patient is unable to perform intermittent self-catheterization. He was offered the options of combination medical BPH treatment, chronic indwelling Cummings catheter, or BPH surgery. He has elected to undergo a transurethral resection of the prostate (TURP) and comes for this reason. - Cardiovascular Cardiovascular: Reports high blood pressure - Genitourinary (Male) Genitourinary: Reports as per HPI Past Medical History Past Medical History: Coronary Artery Disease (CAD), Dementia, GERD/Reflux, Hearing Disorder / Deafness, Hyperlipidemia, Hypertension, Memory Impairment Additional Past Medical History / Comment(s): early stages of dementia-niece states "able to sign own consents", short term memory loss, [place]- no hearing aids History of Any Multi-Drug Resistant Organisms: None Reported Past Surgical History: Heart Catheterization With Stent, Joint Replacement Additional Past Surgical History / Comment(s): lt hip repalcement Past Anesthesia/Blood Transfusion Reactions: No Reported Reaction Additional Past Anesthesia/Blood Transfusion Reaction / Comment(s): no hx blood transfusion Date of Last Stent Placement:: 2021 Smoking Status: Former smoker - Past Family History Father Family Medical History: Coronary Artery Disease (CAD) Additional Family Medical History / Comment(s): CABG Mother Family Medical History: Coronary Artery Disease (CAD) Additional Family Medical History / Comment(s): CABG Medications and Allergies Home Medications Medication Instructions Recorded Confirmed Type Atorvastatin [Lipitor] 40 mg PO HS 11/23/23 02/08/24 History lisinopriL [Zestril] 5 mg PO QAM 11/23/23 02/08/24 History Donepezil [Aricept] 5 mg PO HS tab 12/03/23 02/08/24 Rx Aspirin EC [Ecotrin] 81 mg PO DAILY 12/04/23 02/08/24 History Sennosides [Senokot] 8.6 mg PO DAILY 12/04/23 02/08/24 History ALPRAZolam [Xanax] 0.25 mg PO BID 02/08/24 02/08/24 History Famotidine [Pepcid] 20 mg PO QAM 02/08/24 02/08/24 History Nitroglycerin Sl Tabs [Nitrostat] 0.4 mg SUBLINGUAL Q5M PRN 02/08/24 02/08/24 History Tamsulosin HCl [Flomax] 0.4 mg PO HS 02/08/24 02/08/24 History Allergies Allergy/AdvReac Type Severity Reaction Status Date / Time Iodinated Contrast Media Allergy Anaphylaxis Verified 02/08/24 15:21 hydrocodone AdvReac agitation Verified 02/08/24 15:21 Surgical - Exam - General well developed, well nourished, no distress - Respiratory normal respiratory effort - Genitourinary normal penis with no external lesions, testicles non-tender - Rectum Rectum: normal sphincter tone, no masses, other (Prostate moderately enlarged but smooth) - Psychiatric oriented to time, oriented to person, oriented to place, speech is normal, memory intact Assessment and Plan (1) Benign prostatic hyperplasia with lower urinary tract symptoms Status: Acute Code(s): N40.1 - BENIGN PROSTATIC HYPERPLASIA WITH LOWER URINARY TRACT SYMP SNOMED Code(s): 686118098 Plan: Cystoscopy, bipolar TURP. The procedure has been reviewed in detail with the patient and his family. They have been made aware of potential risks, which include anesthesia, bleeding, infection, urethral stricture, vesical neck contracture, persistent retention, and urinary incontinence.
[2024-02-11] MEDS ORDERED: fentaNYL (PF) 50 MCG/ML 2 ML AMP IV PRN (07:00)
[2024-02-11] MEDS: IV FLUID CONTINUATION 1,000 ML IV ONE (07:10)
[2024-02-11] MEDS: ONDANSETRON 4 MG/2 ML VIAL IVP STA (07:15)
[2024-02-11] MEDS: DEXAMETHASONE SOD PHOSPHATE 4 MG/ML 1 ML VIAL IVP STA (07:16)
[2024-02-11] MEDS: LACTATED RINGERS 1,000 ML IV SCH (07:19)
[2024-02-11] MEDS: LEVOFLOXACIN 500MG-D5W PMX 500 MG in DEXTROSE/WATER 1 100ML.BAG IVPB PRN (07:39)
--- NOTE | 2024-02-11 09:55 | P.OP ---
Date of Procedure: 02/11/24 Preoperative Diagnosis: Urinary retention secondary to BPH Postoperative Diagnosis: Same Procedure(s) Performed: Cystoscopy, bipolar transurethral resection of the prostate (TURP) Anesthesia: spinal Surgeon: Zenon Cooley Estimated Blood Loss (ml): 30 IV fluids (ml): 300 Pathology: other (Prostate chips) Condition: stable Disposition: PACU Indications for Procedure: The patient is a 78-year-old white male recently found to be in urinary retention. 975 cc of urine was drained from the bladder. He has a long history of voiding symptoms. He has taken tamsulosin sporadically in the past. Urodynamic testing suggest normal detrusor function. Cystoscopy shows an obstructing prostate with multiple tiny bladder calculi. The patient is unable to perform intermittent self-catheterization. He was offered the options of combination medical BPH treatment, chronic indwelling Cummings catheter, or BPH surgery. He has elected to undergo a transurethral resection of the prostate (TURP) and comes for this reason. Operative Findings: Complete prostatic occlusion secondary to BPH. Description of Procedure: The patient was taken in the operating room and placed in the dorsolithotomy position after being given a spinal anesthetic. The external genitalia was prepped and draped sterilely. The 25-[place] ACMI resectoscope sheath was introduced into the bladder under direct vision. The bladder was inspected. Both ureteral orifices were of normal anatomic location and configuration. No tumors or foreign bodies were seen. Examination of the prostate revealed complete obstruction with a trilobar configuration. Using the bipolar cutting loop, the small median lobe was resected, along with the floor of the prostate, up to the verumontanum. Next, the lateral lobes were resected down to the conner gical capsule. The floor of the prostate was then resected, proximal to the verumontanum. Lastly, the remaining anterior tissue was resected. The residual apical tissue was then carefully resected, with care taken to avoid injury to the external urinary sphincter. The resection was carried down to the surgical capsule in all 4 quadrants, and the vesical neck fibers were spared. The prostatic fossa was then carefully examined, and any areas of bleeding were controlled with electrocautery. Excellent hemostasis was attained. The resectoscope was withdrawn into the bulbous urethra. The external urinary sphincter remained intact. The prostatic fossa was open. The [employer] evacuator was used to remove all prostate chips from the bladder. These were saved and sent for pathologic examination. The resectoscope was removed, and a 20 [place] Cummings catheter was placed. The return was essentially clear. The patient tolerated the procedure well was taken to the recovery room in stable condition.
[2024-02-11] MEDS ORDERED: NITROGLYCERIN SL TABS 0.4 MG TAB SUBLINGUAL PRN (09:56)
[2024-02-11] MEDS: DEXTROSE 5%-0.45% NACL 1,000 ML IV SCH (12:25)
[2024-02-11] MEDS: ALPRAZolam 0.25 MG TAB PO SCH (21:21)
[2024-02-11] MEDS: DOCUSATE 100 MG CAP PO SCH (21:21)
[2024-02-11] MEDS: TAMSULOSIN 0.4 MG CAP.ER.24H PO SCH (21:21)
[2024-02-11] MEDS: DONEPEZIL 5 MG TAB PO SCH (21:21)
[2024-02-11] MEDS: ATORVASTATIN 40 MG TAB PO SCH (21:21)
[2024-02-12 07:39] VITALS: BP 106/57; PULSE 63; RESP 18; TEMP 97.7
[2024-02-12] MEDS: lisinopriL 5 MG TAB PO SCH (08:58)
[2024-02-12] MEDS: FAMOTIDINE 20 MG TAB PO SCH (08:58)
[2024-02-12] MEDS: SENNOSIDES 8.6 MG TAB PO SCH (08:58)
--- NOTE | 2024-02-12 17:56 | P.DS ---
Providers Attending physician: Zenon Cooley Primary care physician: [facility] Course: This is a 78-year-old male status post transurethral resection of the prostate by Dr. Cooley on February 10. Please see op note dated February 10 for surgery details. Patient was admitted to the hospital postoperatively due to his dementia, and family was concerned about his ability to care for himself. He was discharged home on postop day #1 with the Cummings catheter, at time of discharge he was tolerating a diet, ambulating, pain was controlled Patient Condition at Discharge: Fair Plan - Discharge Summary Discharge Rx Participant: No New Discharge Prescriptions: New Cephalexin [Keflex] 500 mg PO Q12HR #10 cap No Action Atorvastatin [Lipitor] 40 mg PO HS lisinopriL [Zestril] 5 mg PO QAM Donepezil [Aricept] 5 mg PO HS tab Sennosides [Senokot] 8.6 mg PO DAILY Famotidine [Pepcid] 20 mg PO QAM Tamsulosin HCl [Flomax] 0.4 mg PO HS Aspirin EC [Ecotrin] 81 mg PO DAILY Nitroglycerin Sl Tabs [Nitrostat] 0.4 mg SUBLINGUAL Q5M PRN PRN Reason: Chest Pain ALPRAZolam [Xanax] 0.25 mg PO BID Discharge Medication List Atorvastatin [Lipitor] 40 mg PO HS 11/23/23 [History] lisinopriL [Zestril] 5 mg PO QAM 11/23/23 [History] Donepezil [Aricept] 5 mg PO HS tab 12/03/23 [Rx] Aspirin EC [Ecotrin] 81 mg PO DAILY 12/04/23 [History] Sennosides [Senokot] 8.6 mg PO DAILY 12/04/23 [History] ALPRAZolam [Xanax] 0.25 mg PO BID 02/08/24 [History] Famotidine [Pepcid] 20 mg PO QAM 02/08/24 [History] Nitroglycerin Sl Tabs [Nitrostat] 0.4 mg SUBLINGUAL Q5M PRN 02/08/24 [History] Tamsulosin HCl [Flomax] 0.4 mg PO HS 02/08/24 [History] Cephalexin [Keflex] 500 mg PO Q12HR #10 cap 02/12/24 [Rx] Follow up Appointment(s)/Referral(s): Zenon Cooley MD [STAFF PHYSICIAN] - 02/17/24 Activity/Diet/Wound Care/Special Instructions: Discharge home with Cummings catheter. Instruct patient's family (niece) to remove Cummings catheter on 02/16/2024 at at bedtime. Discharge Disposition: HOME SELF-CARE
== END 2024-02-12 13:31 | disposition home or self-care (01) ==
LOC: OR 06:26 → 4SSUR 09:42 → OR 02-12 13:31
PROVIDERS: ATTEND Urology
DX: N40.1 Benign prostatic hyperplasia with lower urinary tract symptoms (principal); I25.10 Atherosclerotic heart disease of native coronary artery without angina pectoris; F03.90 Unspecified dementia, unspecified severity, without behavioral disturbance, psychotic disturbance, mood disturbance, and anxiety; I10 Essential (primary) hypertension; E78.5 Hyperlipidemia, unspecified; K21.9 Gastro-esophageal reflux disease without esophagitis; Z87.891 Personal history of nicotine dependence; Z82.49 Family history of ischemic heart disease and other diseases of the circulatory system; Z91.041 Radiographic dye allergy status; Z88.5 Allergy status to narcotic agent; Z79.82 Long term (current) use of aspirin; Z79.899 Other long term (current) drug therapy
CPT/HCPCS: 52601; J1100; J2405; J1956